=== PATIENT | male | born 1945 | race Caucasian/White ===

== ENCOUNTER 2016-09-18 18:39 | Emergency (ER) | payer MEDICARE, BC ==
[2016-09-18] MEDS ORDERED: Ondansetron 4 MG/2 ML SDV IVPUSH ONE (18:44)
[2016-09-18] MEDS ORDERED: Sodium Chloride 0.9% 1,000 ML IV SCH (18:45)
--- NOTE | 2016-09-18 18:46 | EDM.PDOC ---
ED HPI NEURO - General Chief Complaint: Neuro Symptoms/Deficits Stated Complaint: MEDICAL VIA [facility] Time Seen by Provider: 09/18/16 18:46 Source: Reports: Patient, Family History Limitations: Reports: No limitations - History of Present Illness INITIAL COMMENTS - FREE TEXT/NARRATIVE: pt arrived after a period of being quite confused. He has been ill for the past 2 days and has neen doing alot of vomiting. He does not have chest pain Timing/Duration: Reports: Day(s):, Getting worse, Other (pt has been vomiting for several days. He normally drinks etoh on a regular basis . He hs not drank for the past 2 days. He may be having some withdrawal at this point. ) Location (Neuro Complaint): Reports: generalized Quality (Neuro Complaint): Reports: other (Pt is has generalized weakness and confusion. ) Associated symptoms: Reports: confusion, weakness, nausea/vomiting - Related Data Allergies/ADRs: Allergies Allergy/AdvReac Type Severity Reaction Status Date / Time amlodipine Allergy Swelling Verified 09/18/16 19:00 nifedipine Allergy Rash Verified 09/18/16 19:00 Home Meds: Home Meds Losartan/Hydrochlorothiazide [Hyzaar 100-12.5 Tablet] 2 each PO DAILY 03/30/13 [ History] Metoprolol Tartrate [Lopressor] 100 mg PO BID 03/30/13 [History] PARoxetine HCl [Paxil] 40 mg PO DAILY 03/30/13 [History] Simvastatin [Zocor] 40 mg PO BEDTIME 03/30/13 [History] glyBURIDE [Diabeta] 2.5 mg PO DAILY 03/30/13 [History] hydrALAZINE HCl [Hydralazine HCl] 25 mg PO BID 03/30/13 [History] metFORMIN [Glucophage] 1,000 mg PO BIDM 03/30/13 [History] Aspirin [Halfprin] 81 mg PO DAILY 09/18/16 [History] Social & Family History - Tobacco Use Years of Tobacco use: 0 - Alcohol Use Days Per Week of Alcohol Use: 1 Number of Drinks Per Day: 5 Total Drinks Per Week: 5 - Recreational Drug Use Recreational Drug Use: No - Living Situation & Occupation Living situation: Reports: with spouse Occupation: retired (Substitute teaching) ED ROS GENERAL - Review of Systems Review Of Systems: See Below Constitutional: Reports: no symptoms HEENT: Reports: No symptoms Respiratory: Reports: No Symptoms Cardiovascular: Reports: Other (pt did have a low o2 sat when the first responders arrived. He has been maintaining at 92-93 %. He has not had any chest pain but he has had alot of vomiting and nausea. He has not been able to take his meds. ) Endocrine: Reports: high glucose GI/Abdominal: Reports: Nausea, Vomiting : Reports: no symptoms Musculoskeletal: Reports: no symptoms Skin: Reports: no symptoms ED EXAM, NEURO - Physical Exam Exam: See Below Text/Narrative:: pt is a pale appearing pt who became very confused this afternoon. He did not have chest pain. He has not drank for 2 days and does drink regularly. He denies abdomanal pain. Exam Limited By: Altered mental status General Appearance: alert, obtunded, other (pupils are equal and reactive. ) Ears: normal TMs Nose: normal inspection Throat/Mouth: Normal inspection Head Exam: atraumatic Neck: normal inspection Respiratory/Chest: no respiratory distress Cardiovascular: regular rate, rhythm GI/Abdominal: soft, non tender (Male) Exam: Deferred Rectal (Males) Exam: Deferred Neurological: alert, other (pt has generalized weakness. He is slow to answer. He is oriented to name and where he is. ) Back Exam: normal inspection Extremities: normal inspection Psychiatric: flat affect, other ( slow to respond. ) Course - Vital Signs Last Recorded V/S: Last Vital Signs Temp 37.8 C 09/18/16 20:20 Pulse 107 H 09/18/16 20:00 Resp 18 09/18/16 20:00 BP 167/90 H 09/18/16 20:00 Pulse Ox 94 L 09/18/16 20:00 - Orders/Labs/Meds Orders: Active Orders 24 hr Category Date Time Status EKG Documentation Completion [RC] ASDIRECTED Care 09/18/16 18:46 Active Chest 1V Frontal [CR] Stat Exams 09/18/16 19:41 Ordered Head wo Cont [CT] Stat Exams 09/18/16 18:45 Taken Potassium Chloride [KCL 20 MEQ in Water 100 ML] 20 meq Med 09/18/16 19:52 Ordered Premix Bag 1 bag IV ONETIME Sodium Chloride 0.9% [Normal Saline] 1,000 ml Med 09/18/16 18:45 Active IV ASDIRECTED EKG 12 Lead [EK] Routine Ther 09/18/16 18:46 Ordered Medication Orders Sodium Chloride (Normal Saline) 1,000 mls @ 200 mls/hr IV ASDIRECTED ANNA Last Admin: 09/18/16 18:50 Dose: 200 mls/hr Potassium Chloride 20 meq/ (Premix) 100 mls @ 50 mls/hr IV ONETIME ONE Stop: 09/18/16 21:51 Last Admin: 09/18/16 20:05 Dose: 50 mls/hr Labs: Laboratory Tests 09/18/16 09/18/16 09/18/16 Range/Units 18:55 18:55 18:55 WBC (4.5-11.0) K/uL RBC (4.30-5.90) M/uL Hgb (12.0-15.0) g/dL Hct (40.0-54.0) % MCV (80-98) fL MCH (27-31) pg MCHC (32-36) % Plt Count (150-400) K/uL Neut % (Auto) (36-66) % Lymph % (Auto) (24-44) % [place] % (Auto) (2-6) % Eos % (Auto) (2-4) % Baso % (Auto) (0-1) % Sodium (140-148) mmol/L Potassium (3.6-5.2) mmol/L Chloride (100-108) mmol/L Carbon Dioxide (21-32) mmol/L Anion Gap (5.0-14.0) mmol/L BUN (7-18) mg/dL Creatinine (0.8-1.3) mg/dL Est Cr Clr Drug Dosing mL/min Estimated GFR (MDRD) (>60) Glucose (74-106) mg/dL Calcium (8.5-10.1) mg/dL Total Bilirubin (0.2-1.0) mg/dL AST (15-37) U/L ALT (12-78) U/L Alkaline Phosphatase (46-116) U/L Ammonia 12 (11-32) mmol/L Creatine Kinase (39-308) U/L Troponin I 0.441 H* (0.000-0.056) ng/mL Zjk-[id number]-Hyhlddspwtq Pept (5-125) pg/mL Total Protein (6.4-8.2) g/dL Albumin (3.4-5.0) g/dL Globulin (2.3-3.5) g/dL Albumin/Globulin Ratio (1.2-2.2) Lipase 245 (73-393) U/L Urine Color Urine Appearance Urine pH (4.5-8.0) Ur Specific Evans (1.008-1.030) Urine Protein (NEGATIVE) mg/dL Urine Glucose (UA) (NEGATIVE) mg/dL Urine Ketones (NEGATIVE) mg/dL Urine Occult Blood (NEGATIVE) Urine Nitrite (NEGAITVE) Urine Bilirubin (NEGATIVE) Urine Urobilinogen (NORMAL) mg/dL Ur Leukocyte Esterase (NEGATIVE) Urine RBC (0-5) Urine WBC (0-5) Ur Epithelial Cells Amorphous Sediment Urine Bacteria Urine Mucus Ethyl Alcohol mg/dL 09/18/16 09/18/16 09/18/16 Range/Units 18:55 18:55 19:20 WBC 12.4 H (4.5-11.0) K/uL RBC 4.04 L (4.30-5.90) M/uL Hgb 13.8 (12.0-15.0) g/dL Hct 39.5 L (40.0-54.0) % MCV 98 (80-98) fL MCH 34 H (27-31) pg MCHC 35 (32-36) % Plt Count 155 (150-400) K/uL Neut % (Auto) 89 H (36-66) % Lymph % (Auto) 4 L (24-44) % [place] % (Auto) 7 H (2-6) % Eos % (Auto) 0 L (2-4) % Baso % (Auto) 0 (0-1) % Sodium 137 L (140-148) mmol/L Potassium 3.1 L (3.6-5.2) mmol/L Chloride 94 L (100-108) mmol/L Carbon Dioxide 26 (21-32) mmol/L Anion Gap 20.1 H (5.0-14.0) mmol/L BUN 12 (7-18) mg/dL Creatinine 1.2 (0.8-1.3) mg/dL Est Cr Clr Drug Dosing 62.75 mL/min Estimated GFR (MDRD) > 60 (>60) Glucose 322 H (74-106) mg/dL Calcium 9.1 (8.5-10.1) mg/dL Total Bilirubin 0.9 (0.2-1.0) mg/dL AST 52 H (15-37) U/L ALT 39 (12-78) U/L Alkaline Phosphatase 59 (46-116) U/L Ammonia (11-32) mmol/L Creatine Kinase 426 H (39-308) U/L Troponin I (0.000-0.056) ng/mL Qae-A-Xcihqlmqzim Pept (5-125) pg/mL Total Protein 7.8 (6.4-8.2) g/dL Albumin 4.2 (3.4-5.0) g/dL Globulin 3.6 H (2.3-3.5) g/dL Albumin/Globulin Ratio 1.2 (1.2-2.2) Lipase (73-393) U/L Urine Color Yellow Urine Appearance Slightly cloudy Urine pH 7.0 (4.5-8.0) Ur Specific Evans 1.015 (1.008-1.030) Urine Protein Negative (NEGATIVE) mg/dL Urine Glucose (UA) 1000 H (NEGATIVE) mg/dL Urine Ketones 50 H (NEGATIVE) mg/dL Urine Occult Blood Large (NEGATIVE) Urine Nitrite Negative (NEGAITVE) Urine Bilirubin Negative (NEGATIVE) Urine Urobilinogen Normal (NORMAL) mg/dL Ur Leukocyte Esterase Negative (NEGATIVE) Urine RBC 5-10 H (0-5) Urine WBC 0-5 (0-5) Ur Epithelial Cells Few Amorphous Sediment Not seen Urine Bacteria Many Urine Mucus Rare Ethyl Alcohol mg/dL 09/18/16 09/18/16 Range/Units 19:45 19:45 WBC (4.5-11.0) K/uL RBC (4.30-5.90) M/uL Hgb (12.0-15.0) g/dL Hct (40.0-54.0) % MCV (80-98) fL MCH (27-31) pg MCHC (32-36) % Plt Count (150-400) K/uL Neut % (Auto) (36-66) % Lymph % (Auto) (24-44) % [place] % (Auto) (2-6) % Eos % (Auto) (2-4) % Baso % (Auto) (0-1) % Sodium (140-148) mmol/L Potassium (3.6-5.2) mmol/L Chloride (100-108) mmol/L Carbon Dioxide (21-32) mmol/L Anion Gap (5.0-14.0) mmol/L BUN (7-18) mg/dL Creatinine (0.8-1.3) mg/dL Est Cr Clr Drug Dosing mL/min Estimated GFR (MDRD) (>60) Glucose (74-106) mg/dL Calcium (8.5-10.1) mg/dL Total Bilirubin (0.2-1.0) mg/dL AST (15-37) U/L ALT (12-78) U/L Alkaline Phosphatase (46-116) U/L Ammonia (11-32) mmol/L Creatine Kinase (39-308) U/L Troponin I (0.000-0.056) ng/mL Bhu-I-Dlwihlsmver Pept 2580 H (5-125) pg/mL Total Protein (6.4-8.2) g/dL Albumin (3.4-5.0) g/dL Globulin (2.3-3.5) g/dL Albumin/Globulin Ratio (1.2-2.2) Lipase (73-393) U/L Urine Color Urine Appearance Urine pH (4.5-8.0) Ur Specific Evans (1.008-1.030) Urine Protein (NEGATIVE) mg/dL Urine Glucose (UA) (NEGATIVE) mg/dL Urine Ketones (NEGATIVE) mg/dL Urine Occult Blood (NEGATIVE) Urine Nitrite (NEGAITVE) Urine Bilirubin (NEGATIVE) Urine Urobilinogen (NORMAL) mg/dL Ur Leukocyte Esterase (NEGATIVE) Urine RBC (0-5) Urine WBC (0-5) Ur Epithelial Cells Amorphous Sediment Urine Bacteria Urine Mucus Ethyl Alcohol < 3 mg/dL Meds: Medications Generic Name Dose Route Start Last Admin Trade Name Freq PRN Reason Stop Dose Admin Sodium Chloride 1,000 mls @ 200 mls/hr 09/18/16 18:45 09/18/16 18:50 Normal Saline IV 200 mls/hr ASDIRECTED ANNA Administration Potassium Chloride 20 meq/ 100 mls @ 50 mls/hr 09/18/16 19:52 09/18/16 20:05 Premix IV 09/18/16 21:51 50 mls/hr ONETIME ONE Administration Discontinued Medications Generic Name Dose Route Start Last Admin Trade Name Yamilka PRN Reason Stop Dose Admin Insulin Aspart 7 unit 09/18/16 19:54 09/18/16 20:15 Novolog SUBCUT 09/18/16 19:55 7 units ASDIRECTED ONE Administration Labetalol HCl 20 mg 09/18/16 19:53 09/18/16 19:59 Normodyne IVPUSH 09/18/16 19:54 20 mg NOW ONE Administration Lidocaine HCl Confirm 09/18/16 19:58 09/18/16 20:15 Xylocaine-Mpf 1% Administered 09/18/16 19:59 Not Given Dose 5 ml .ROUTE .STK-MED ONE Lidocaine HCl 2 ml 09/18/16 20:08 09/18/16 20:10 Xylocaine-Mpf 1% INJECT 09/18/16 20:09 2 ml ONETIME ONE Administration Ondansetron HCl 4 mg 09/18/16 18:44 09/18/16 18:51 Zofran IVPUSH 09/18/16 18:45 4 mg ONETIME ONE Administration - Re-Assessments/Exams Free Text/Narrative Re-Assessment/Exam: 09/18/16 20:19 pt had a elevated trop at .44. He has a bs of 344. He has a k of 3.1. He has an elevated bp and was given labatiol 20mg iv. He ws given kcl. He was given7 units of humolog . He was given kcl. He had asa in the ambulance. 09/18/16 20:23 cat scan of the head was normal. Departure - Departure Time of Disposition: 20:21 Disposition: DC/Tfer to Acute Hospital 02 Condition: fair Clinical Impression: Elevated troponin, Confusion, ETOH abuse, Hypokalemia, Hypertension, Hyperglycemia Referrals: PCP,None [Primary Care Provider] - Forms: ED Department Discharge Care Plan Goals: transfer [facility] by ambulance. - My Orders Last 24 Hours: My Active Orders 09/18/16 18:45 Head wo Cont [CT] Stat Sodium Chloride 0.9% [Normal Saline] 1,000 ml IV ASDIRECTED 09/18/16 18:46 EKG Documentation Completion [RC] ASDIRECTED EKG 12 Lead [EK] Routine 09/18/16 19:41 Chest 1V Frontal [CR] Stat 09/18/16 19:52 Potassium Chloride [KCL 20 MEQ in Water 100 ML] 20 meq Premix Bag 1 bag IV ONETIME - Assessment/Plan Last 24 Hours: My Active Orders 09/18/16 18:45 Head wo Cont [CT] Stat Sodium Chloride 0.9% [Normal Saline] 1,000 ml IV ASDIRECTED 09/18/16 18:46 EKG Documentation Completion [RC] ASDIRECTED EKG 12 Lead [EK] Routine 09/18/16 19:41 Chest 1V Frontal [CR] Stat 09/18/16 19:52 Potassium Chloride [KCL 20 MEQ in Water 100 ML] 20 meq Premix Bag 1 bag IV ONETIME
[2016-09-18] MEDS ORDERED: Potassium Chloride 20 MEQ in Premix Bag 1 BAG IV ONE (19:52)
[2016-09-18] MEDS ORDERED: Labetalol 20 MG/4 ML Syringe IVPUSH ONE (19:53)
[2016-09-18] MEDS ORDERED: Insulin Aspart 100 Units/ML 3 ML Pen SUBCUT ONE (19:54)
[2016-09-18 20:14] VITALS: BP 167/90
--- NOTE | 2016-09-20 10:17 | CR ---
Chest 1V Frontal HISTORY: Shortness of breath. Comparison: 04/20/2015. FINDINGS: Cardiac size and pulmonary vessels are normal. The lungs are clear. IMPRESSION: Negative AP chest.
== END 2016-09-18 20:46 ==
LOC: JP.ED 18:39
DX: R41.0 Disorientation, unspecified (principal); E87.6 Hypokalemia; R73.9 Hyperglycemia, unspecified; I10 Essential (primary) hypertension; F10.10 Alcohol abuse, uncomplicated; R74.8 Abnormal levels of other serum enzymes; Z79.82 Long term (current) use of aspirin; Z79.899 Other long term (current) drug therapy; Z88.8 Allergy status to other drugs, medicaments and biological substances; R06.02 Shortness of breath
CPT/HCPCS: 36415; 70450; 71010; 80053; 81001; 82140; 82550; 83690; 83880; 84484; 85025; 93005; 93010; 96361; 96372; 96374; 96375; 99285; A9270; G0480; J2405; J3480; J7040

== ENCOUNTER 2017-07-04 17:42 | Emergency (ER) | payer MEDICARE, BC ==
[2017-07-04] MEDS ORDERED: MVI, Adult with Vitamin K 10 ML, Thiamine 200 MG, Folic Acid 1 MG, Magnesium Sulfate 2 ... IV ONE ×5 (18:22)
--- NOTE | 2017-07-04 18:26 | EDM.PDOC ---
ED HPI GENERAL MEDICAL PROBLEM - General Chief Complaint: Neuro Symptoms/Deficits Stated Complaint: SEIZURE Time Seen by Provider: 07/04/17 18:07 Source of Information: Reports: Patient, Family, RN Notes Reviewed History Limitations: Reports: No Limitations - History of Present Illness INITIAL COMMENTS - FREE TEXT/NARRATIVE: 71-year-old gentleman presents to the emergency department today with the complaint of seizure-like activity, he has a known history of alcohol abuse and dependence has had one seizure episode prior which included workup of CT scan. For this particular event he does admit to consuming vodka and wine last drink was on Tuesday or approximately 72 hours prior he did have tremors yesterday has had difficulty with vomiting throughout the weekend had an episode today described by his where he was stiff did bite his tongue eyes were closed and was having difficulty maintaining his secretions. At this time he denies any symptomology other than a sore tongue and is in denial about his alcohol use. - Related Data Allergies Allergy/AdvReac Type Severity Reaction Status Date / Time amlodipine Allergy Swelling Verified 07/04/17 17:56 nifedipine Allergy Rash Verified 07/04/17 17:56 Home Meds: Home Meds Losartan/Hydrochlorothiazide [Hyzaar 100-12.5 Tablet] 2 each PO DAILY 03/30/13 [ History] Metoprolol Tartrate [Lopressor] 100 mg PO BID 03/30/13 [History] PARoxetine HCl [Paxil] 40 mg PO DAILY 03/30/13 [History] glyBURIDE [Diabeta] 2.5 mg PO DAILY 03/30/13 [History] hydrALAZINE HCl [Hydralazine HCl] 25 mg PO BID 03/30/13 [History] metFORMIN [Glucophage] 1,000 mg PO BID 03/30/13 [History] Past Medical History HEENT History: Reports: Impaired Vision Cardiovascular History: Reports: High Cholesterol, Hypertension Genitourinary History: Reports: Prostate Disorder Musculoskeletal History: Reports: Back Pain, Chronic Psychiatric History: Reports: Addiction (Alcohol), Anxiety, Depression Endocrine/Metabolic History: Reports: Diabetes, Type II - Infectious Disease History Infectious Disease History: Reports: Chicken Pox - Past Surgical History Neurological Surgical History: Reports: Other (See Below) Social & Family History - Tobacco Use Smoking Status *Q: Unknown Ever Smoked Years of Tobacco use: 0 Used Tobacco, but Quit: Yes Month Tobacco Last Used: december 2015 - Caffeine Use Caffeine Use: Reports: None - Alcohol Use Days Per Week of Alcohol Use: 7 Number of Drinks Per Day: 5 Total Drinks Per Week: 35 - Recreational Drug Use Recreational Drug Use: No - Living Situation & Occupation Living situation: Reports: with Spouse Occupation: Retired ED ROS GENERAL - Review of Systems Review Of Systems: See Below Constitutional: Reports: No Symptoms HEENT: Reports: Other (Sore tongue) Respiratory: Reports: No Symptoms Cardiovascular: Reports: No Symptoms Endocrine: Reports: No Symptoms GI/Abdominal: Reports: No Symptoms : Reports: No Symptoms Musculoskeletal: Reports: No Symptoms Skin: Reports: No Symptoms Neurological: Reports: No Symptoms ED EXAM, NEURO - Physical Exam Exam: See Below Text/Narrative:: General: Male, not in any distress, alert and oriented x2 confused on year 1966 HEENT: head is atraumatic normocephalic, eyes pupils equal round reactive to light, sclera clear no conjunctivitis appreciated. Ears tympanic membranes clear and polo landmarks and light reflex are present bilaterally canals are clear. Nose no septal deviation, nares are clear, no blood present. Mouth mucosa is dry and pink no erythema or exudate noted in soft palate, tongue is midline uvula is midline, tongue does have a superficial lacerations consistent with a bite on the right lateral aspect, dentition is intact. Neck: Supple no thyromegaly no tracheal deviation. Nodes: Cervical nodes subclavicular nodes nontender no palpable lymphadenopathy noted. Lungs: breath sounds are distant , no adventitious noise appreciated. CV: Regular rate and rhythm S1 and S2 appreciated no murmurs rubs or gallops noted. Abdomen: Soft, nontender, no palpable masses or organomegaly appreciated, no distention no guarding bowel sounds are present, . Neuro: Cranial nerves II through XII grossly intact Skin: Warm and dry, intact Extremities: No lower extremity edema appreciated, pedal pulse is +2. Course - Vital Signs Last Recorded V/S: Last Vital Signs Temp 99.7 F 07/04/17 21:17 Pulse 88 07/04/17 23:40 Resp 16 07/04/17 23:40 BP 164/92 H 07/04/17 23:40 Pulse Ox 92 L 07/04/17 23:40 - Orders/Labs/Meds Orders: Active Orders 24 hr Category Date Time Status Head wo Cont [CT] Stat Exams 07/04/17 22:27 Taken DRUG SCREEN, URINE [URCHEM] Stat Lab 07/04/17 22:27 Uncollected UA W/MICROSCOPIC [URIN] Urgent Lab 07/04/17 22:27 Uncollected LORazepam [Ativan] Med 07/05/17 00:03 Once 2 mg IVPUSH ONETIME ONE Labs: Laboratory Tests 07/04/17 07/04/17 07/04/17 Range/Units 18:32 18:32 18:32 WBC 8.5 (4.5-11.0) K/uL RBC 4.33 (4.30-5.90) M/uL Hgb 14.8 (12.0-15.0) g/dL Hct 41.4 (40.0-54.0) % MCV 96 (80-98) fL MCH 34 H (27-31) pg MCHC 36 (32-36) % Plt Count 127 L (150-400) K/uL Neut % (Auto) 84 H (36-66) % Lymph % (Auto) 6 L (24-44) % [place] % (Auto) 11 H (2-6) % Eos % (Auto) 0 L (2-4) % Baso % (Auto) 0 (0-1) % PT (9.5-12.0) sec INR (0.80-1.20) Sodium 134 L (140-148) mmol/L Potassium 3.0 L (3.6-5.2) mmol/L Chloride 90 L (100-108) mmol/L Carbon Dioxide 30 (21-32) mmol/L Anion Gap 17.0 H (5.0-14.0) mmol/L BUN 23 H D (7-18) mg/dL Creatinine 1.2 (0.8-1.3) mg/dL Est Cr Clr Drug Dosing 61.88 mL/min Estimated GFR (MDRD) > 60 (>60) Glucose 221 H (74-106) mg/dL Calcium 9.2 (8.5-10.1) mg/dL Total Bilirubin 1.4 H D (0.2-1.0) mg/dL AST 72 H (15-37) U/L ALT 72 D (12-78) U/L Alkaline Phosphatase 62 (46-116) U/L Total Protein 7.3 (6.4-8.2) g/dL Albumin 4.2 (3.4-5.0) g/dL Globulin 3.1 (2.3-3.5) g/dL Albumin/Globulin Ratio 1.4 (1.2-2.2) Ethyl Alcohol < 3 mg/dL 07/04/17 Range/Units 22:27 WBC (4.5-11.0) K/uL RBC (4.30-5.90) M/uL Hgb (12.0-15.0) g/dL Hct (40.0-54.0) % MCV (80-98) fL MCH (27-31) pg MCHC (32-36) % Plt Count (150-400) K/uL Neut % (Auto) (36-66) % Lymph % (Auto) (24-44) % [place] % (Auto) (2-6) % Eos % (Auto) (2-4) % Baso % (Auto) (0-1) % PT 13.3 H (9.5-12.0) sec INR 1.23 H (0.80-1.20) Sodium (140-148) mmol/L Potassium (3.6-5.2) mmol/L Chloride (100-108) mmol/L Carbon Dioxide (21-32) mmol/L Anion Gap (5.0-14.0) mmol/L BUN (7-18) mg/dL Creatinine (0.8-1.3) mg/dL Est Cr Clr Drug Dosing mL/min Estimated GFR (MDRD) (>60) Glucose (74-106) mg/dL Calcium (8.5-10.1) mg/dL Total Bilirubin (0.2-1.0) mg/dL AST (15-37) U/L ALT (12-78) U/L Alkaline Phosphatase (46-116) U/L Total Protein (6.4-8.2) g/dL Albumin (3.4-5.0) g/dL Globulin (2.3-3.5) g/dL Albumin/Globulin Ratio (1.2-2.2) Ethyl Alcohol mg/dL Meds: Medications Discontinued Medications Generic Name Dose Route Start Last Admin Trade Name Freq PRN Reason Stop Dose Admin Multivitamins/Minerals 10 ml/ 1,016.2 mls @ 500 mls/hr 07/04/17 18:22 18:51 Thiamine HCl 200 mg/ Folic IV 07/04/17 20:23 500 mls/hr Acid 1 mg/ Magnesium Sulfate 2 ONETIME ONE Administration gm/ Dextrose/Lactated Ringer' s Potassium Chloride 20 meq/ 100 mls @ 50 mls/hr 07/04/17 19:03 07/04/17 19:13 Premix IV 07/04/17 21:02 50 mls/hr ONETIME ONE Administration Lidocaine HCl 2 ml 07/04/17 19:07 07/04/17 19:14 Xylocaine-Mpf 1% INJECT 07/04/17 19:08 2 ml ONETIME ONE Administration Lorazepam 1 mg 07/04/17 21:23 07/04/17 21:32 Ativan IVPUSH 07/04/17 21:24 1 mg ONETIME ONE Administration Lorazepam 1 mg 07/04/17 23:14 07/04/17 23:21 Ativan IVPUSH 07/04/17 23:15 1 mg ONETIME ONE Administration Potassium Chloride 40 meq 07/04/17 19:03 07/04/17 19:14 Klor-Con M20 PO 07/04/17 19:04 40 meq ONETIME ONE Administration - Re-Assessments/Exams Free Text/Narrative Re-Assessment/Exam: Had a discussion with the family they elected to try [facility] detoxification facility unfortunately when we tried to ambulate this gentleman he had difficulty ambulating became more confused during his time in the emergency department., 07/04/17 22:28 Departure - Departure Time of Disposition: 00:06 Disposition: DC/Tfer to Acute Hospital 02 Condition: Fair Clinical Impression: Delirium tremens, ETOH abuse Alcohol withdrawal seizure Qualifiers: Complication of substance-induced condition: with delirium Qualified Code(s): F10.231 - Alcohol dependence with withdrawal delirium - Discharge Information Referrals: Cy Barragan MD [Primary Care Provider] - Forms: ED Department Discharge - My Orders Last 24 Hours: My Active Orders 07/04/17 22:27 Head wo Cont [CT] Stat DRUG SCREEN, URINE [URCHEM] Stat UA W/MICROSCOPIC [URIN] Urgent 07/05/17 00:03 LORazepam [Ativan] 2 mg IVPUSH ONETIME ONE - Assessment/Plan Last 24 Hours: My Active Orders 07/04/17 22:27 Head wo Cont [CT] Stat DRUG SCREEN, URINE [URCHEM] Stat UA W/MICROSCOPIC [URIN] Urgent 07/05/17 00:03 LORazepam [Ativan] 2 mg IVPUSH ONETIME ONE Plan: Assessment Acuity = acute Site and laterality = alcohol withdrawal with seizure like activity and concern for development of delirium tremors Etiology = alcohol abuse and dependence Manifestations = none Location of injury = Home Lab values = platelets low at 127 consistent with thrombocytopenia sodium low at 134 consistent with hyponatremia potassium low at 3.0 consistent with hypokalemia glucose elevated at 221 consistent with hyperglycemia bilirubin high at 1.4 consistent with hyperbilirubinemia AST elevated at 72 consistent elevated liver enzymes alcohol is not measurable, INR is 1.23 urine never collected Plan Potassium was replaced with IV and oral medications he was given 1 banana bag while in the ED observed for several hours no seizure-like activity , has been provided total of 4 mg Ativan while in the emergency department, called and discussed the case with hospitalist at [facility] Dr. Gomez he kindly accepted the patient in transport he will be transported via EMS ground. This note was dictated using [employer] voice recognition software please call with any questions on syntax or lizet.
[2017-07-04] MEDS ORDERED: Potassium Chloride 20 MEQ Tab.ER PO ONE (19:03)
[2017-07-04] MEDS ORDERED: Potassium Chloride 20 MEQ in Premix Bag 1 BAG IV ONE (19:03)
[2017-07-04] MEDS ORDERED: LORazepam 2 MG/ML MDV IVPUSH ONE ×2 (21:23→23:14)
[2017-07-04 23:41] VITALS: BP 164/92
[2017-07-05] MEDS ORDERED: LORazepam 2 MG/ML MDV IVPUSH ONE ×2 (00:03→00:35)
== END 2017-07-05 00:41 ==
LOC: JP.ED 17:42
DX: F10.231 Alcohol dependence with withdrawal delirium (principal); S01.512A Laceration without foreign body of oral cavity, initial encounter; Y90.0 Blood alcohol level of less than 20 mg/100 ml; I10 Essential (primary) hypertension; E78.00 Pure hypercholesterolemia, unspecified; F32.9 Major depressive disorder, single episode, unspecified; E11.9 Type 2 diabetes mellitus without complications; Z87.891 Personal history of nicotine dependence; Z79.84 Long term (current) use of oral hypoglycemic drugs; Z79.899 Other long term (current) drug therapy; Z88.8 Allergy status to other drugs, medicaments and biological substances; X58.XXXA Exposure to other specified factors, initial encounter
CPT/HCPCS: 36415; 70450; 80053; 80305; 81001; 85025; 85610; 96365; 96366; 96375; 96376; 99285; A9270; G0480; J2060; J3411; J3475; J3480; J7042; 99284; J3490

== ENCOUNTER 2020-06-13 08:44 | Day surgery (SDC) | payer MEDICARE, BC ==
[~2020-06-13 08:44] MED LIST: Bupivacaine 0.5% 50 ML MDV ONE; Lidocaine 1% with EPINEPHrine 1:100,000 50 ML MDV ONE; Midazolam 1 MG/ML 2 ML SDV ONE; Propofol 200 MG/20 ML SDV ONE; fentaNYL 100 MCG/2 ML SDV ONE
[2020-06-13] MEDS ORDERED: Acetaminophen 500 MG Tab PO ONE (08:45)
[2020-06-13] MEDS ORDERED: Dextrose 5%-Lactated Ringers 1,000 ML IV SCH (09:15)
[2020-06-13] MEDS ORDERED: Metoprolol Tartrate 50 MG Tab PO ONE (09:15)
[2020-06-13] MEDS ORDERED: Propofol 200 MG/20 ML SDV ONE ×4 (10:12→11:02)
[2020-06-13] MEDS ORDERED: ceFAZolin 1 GM Vial ONE (10:14)
[2020-06-13] MEDS ORDERED: Ketorolac 60 MG/2 ML SDV ONE (10:54)
[2020-06-13] MEDS ORDERED: Lactated Ringers 1,000 ML ONE (10:57)
[2020-06-13] MEDS ORDERED: Acetaminophen/oxyCODONE 325-5 MG Tab PO ONE (12:00)
[2020-06-13 12:49] VITALS: BP 143/69; PULSE 72
--- NOTE | 2020-06-22 12:33 | OR ---
DATE OF PROCEDURE: 06/13/2020 SURGEON: Varun Vital MD PREOPERATIVE DIAGNOSIS: Large painful right inguinal lymph nodes. POSTOPERATIVE DIAGNOSIS: Large painful right inguinal lymph nodes. OPERATIVE PROCEDURE: Superficial inguinal femoral lymphadenectomy (15316). ANESTHESIA: Local plus IV sedation. INDICATION FOR PROCEDURE: A 74-year-old presenting with rapidly enlarging, quite painful nodes located in the inguinal and femoral area on the right side. Plan is to proceed with excision of these for both symptom control as well as diagnostic purposes. Potential risks of the procedure including bleeding, infection, injury to the nerves and/or vasculature in that area were discussed. Possible problems with ongoing lymphatic drainage postoperatively from the incision were all gone over and the patient wishes to proceed. DETAILS OF PROCEDURE: The patient was taken to the operating room and placed in a supine position. IV sedation was administered after which the abdomen and groin areas were prepped and draped. The skin overlying the inguinal crease was then anesthetized with 1% lidocaine mixed with Marcaine. An incision was made and carried down through the skin and subcutaneous tissue. Several large nodes up to the size of ping-pong balls in dimension were then excised essentially moving all of the inguinal and femoral lymph nodes in that area. The lymph nodes grossly were fish flesh in color quite suggestive of this being a lymphoma. During the course of the dissection, the vascular and lymphatic attachments were divided and suture ligated with 3-0 and 4-0 Vicryl stitch, and at that point, the area was inspected. It was notable that there was some palpable lymphadenopathy continuing into the iliac chain extending toward the retroperitoneum. A 7-Vietnamese Nikhil-Miner drain was placed through a stab wound lateral to the main incision and the incision then closed with 3 layers of 3-0 and 4-0 Vicryl stitch deep and then néstor for the skin. The drain was affixed with 4-0 Vicryl stitch as well and the patient was taken to the recovery room in satisfactory condition. There were no evident complications. Plan at this point will be to set up the patient for a CT scan of the chest, abdomen, and pelvis for initial staging of the process and we will see him back next Tuesday to check the wound and hopefully we will get a pathology report in the near future with a Medical Oncology appointment to be set up at that point. Varun Vital MD /[id number]
== END 2020-06-13 13:00 | disposition home or self-care (01) ==
LOC: JP.SDS 08:44
PROVIDERS: ATTEND Surgery
DX: C96.9 Malignant neoplasm of lymphoid, hematopoietic and related tissue, unspecified (principal); I10 Essential (primary) hypertension; E11.9 Type 2 diabetes mellitus without complications; C79.9 Secondary malignant neoplasm of unspecified site
CPT/HCPCS: 38760; 88307; 88341; 88342; A9270; J0690; J1885; J2020; J2250; J2704; J3010; J3490; J7120; J7121

== ENCOUNTER 2020-09-03 10:34 | Inpatient (IN) | payer MEDICARE, BC ==
[2020-09-03] MEDS ORDERED: Potassium Chloride 20 MEQ in Premix Bag 1 BAG IV ONE ×3 (11:13→21:30)
[2020-09-03] MEDS ORDERED: Sodium Chloride 0.9% 1,000 ML IV SCH (11:15)
--- NOTE | 2020-09-03 11:17 | EDM.PDOC ---
ED HPI GENERAL MEDICAL PROBLEM - General Chief Complaint: General Stated Complaint: WEAK, LOW POTASSIUM Time Seen by Provider: 09/03/20 11:16 Source of Information: Reports: Patient, Police History Limitations: Reports: No Limitations - History of Present Illness INITIAL COMMENTS - FREE TEXT/NARRATIVE: pt was seen at the clinic ansd was found to have k of 2.2. He did have a temp of 101. He is on oral chemo for his prostate Ca. His urine was infected. Onset: Gradual Duration: Day(s):, Other (pt has been much weaker. ) Location: Reports: Generalized Associated Symptoms: Reports: Fever/Chills, Loss of Appetite, Weakness Generalized Pain Score (Numeric/FACES): 6 - Related Data Allergies Allergy/AdvReac Type Severity Reaction Status Date / Time amlodipine Allergy Swelling Verified 09/03/20 10:56 nifedipine Allergy Rash Verified 09/03/20 10:56 Home Meds: Home Meds Losartan/Hydrochlorothiazide [Hyzaar 100-12.5 Tablet] 2 each PO DAILY 03/30/13 [History] Metoprolol Tartrate [Lopressor] 100 mg PO BID 03/30/13 [History] PARoxetine HCl [Paxil] 40 mg PO DAILY 03/30/13 [History] glyBURIDE [Diabeta] 2.5 mg PO DAILY 03/30/13 [History] hydrALAZINE HCl [Hydralazine HCl] 25 mg PO BID 03/30/13 [History] metFORMIN [Glucophage] 1,000 mg PO BID 03/30/13 [History] Chlorpheniramine Maleate 12 mg PO DAILY 06/12/20 [History] Cholecalciferol (Vitamin D3) [Vitamin D] 1,000 unit PO DAILY 06/12/20 [History] Copper/Ginseng/Saw Palm/Zinc [Prostate Health Formula] 1 each PO DAILY 06/12/20 [History] Cyanocobalamin (Vitamin B-12) [B-12] 2,500 mcg SL DAILY 06/12/20 [History] Folic Acid 0.4 mg PO DAILY 06/12/20 [History] Furosemide [Lasix] 20 mg PO DAILY 06/12/20 [History] Multivitamin [Multi-Vitamin Daily] 1 each PO DAILY 06/12/20 [History] Ondansetron [Ondansetron Odt] 4 mg PO Q8HR PRN 06/12/20 [History] Abiraterone Acetate 1,000 mg PO DAILY 09/03/20 [History] Finasteride 5 mg PO DAILY 09/03/20 [History] Tamsulosin [Tamsulosin 24 Hr] 0.4 mg PO DAILY 09/03/20 [History] Past Medical History HEENT History: Reports: Impaired Vision Cardiovascular History: Reports: High Cholesterol, Hypertension Respiratory History: Reports: None Gastrointestinal History: Reports: None Genitourinary History: Reports: BPH, Prostate Disorder Musculoskeletal History: Reports: Back Pain, Chronic Psychiatric History: Reports: Addiction, Anxiety, Depression Endocrine/Metabolic History: Reports: Diabetes, Type II Oncologic (Cancer) History: Reports: Prostate - Infectious Disease History Infectious Disease History: Reports: Chicken Pox, Novel Coronavirus - Past Surgical History HEENT Surgical History: Reports: Tonsillectomy GI Surgical History: Reports: None Male Surgical History: Reports: Prostate Biopsy Neurological Surgical History: Reports: Other (See Below) Other Neurological Surgeries/Procedures: Back surgery Social & Family History - Tobacco Use Tobacco Use Status *Q: Former Tobacco User Used Tobacco, but Quit: Yes Month/Year Tobacco Last Used: 20 years - Caffeine Use Caffeine Use: Reports: None - Recreational Drug Use Recreational Drug Use: No - Living Situation & Occupation Living situation: Reports: with Spouse Occupation: Retired ED ROS GENERAL - Review of Systems Review Of Systems: See Below Constitutional: Reports: Fever, Chills, Malaise HEENT: Reports: No Symptoms Respiratory: Reports: No Symptoms Cardiovascular: Reports: Palpitations Endocrine: Reports: No Symptoms GI/Abdominal: Reports: No Symptoms : Reports: No Symptoms Musculoskeletal: Reports: No Symptoms Skin: Reports: No Symptoms ED EXAM, GENERAL - Physical Exam Exam: See Below Free Text/Narrative:: pt had labs at the clinic. He had a k of 2.2. He has a normal wbc. He has a uti and a fever. He is on oral chemo. Exam Limited By: No Limitations General Appearance: Alert, Anxious, Mild Distress Ears: Normal TMs Nose: Normal Inspection Throat/Mouth: Normal Inspection Head: Atraumatic Neck: Normal Inspection Respiratory/Chest: No Respiratory Distress Cardiovascular: Regular Rate, Rhythm, Tachycardia GI/Abdominal: Soft, Non-Tender (Male) Exam: Deferred Rectal (Males) Exam: Deferred Back Exam: Normal Inspection Extremities: Normal Inspection Neurological: Alert, Oriented, Normal Cognition, Other (pt is lethargic) Psychiatric: Normal Affect Course - Vital Signs Last Recorded V/S: Last Vital Signs Temp 36.8 C 09/03/20 10:53 Pulse 88 09/03/20 10:53 Resp 15 09/03/20 10:53 BP 132/70 09/03/20 10:53 Pulse Ox 95 09/03/20 10:53 - Orders/Labs/Meds Orders: Active Orders 24 hr Category Date Time Status CULTURE BLOOD [BC] Urgent Lab 09/03/20 11:22 Received CULTURE BLOOD [BC] Urgent Lab 09/03/20 11:32 Received Sodium Chloride 0.9% [Normal Saline] 1,000 ml Med 09/03/20 11:15 Active IV ASDIRECTED Sodium Chloride 0.9% [Normal Saline] 1,000 ml Med 09/03/20 11:15 Active IV ASDIRECTED Blood Culture x2 Reflex Set [OM.PC] Urgent Oth 09/03/20 11:15 Ordered EKG 12 Lead [EK] Routine Ther 09/03/20 11:13 Ordered Medication Orders Sodium Chloride (Normal Saline) 1,000 mls @ 999 mls/hr IV ASDIRECTED ANNA Last Admin: 09/03/20 11:55 Dose: 999 mls/hr Documented by: Infusion: 09/03/20 11:55 Dose: 999 mls/hr Documented by: Admin: 09/03/20 11:54 Dose: 999 mls/hr Documented by: PREILOR Sodium Chloride (Normal Saline) 1,000 mls @ 999 mls/hr IV ASDIRECTED ANNA Last Admin: 09/03/20 12:00 Dose: 999 mls/hr Documented by: PREILOR Labs: Laboratory Tests 09/03/20 09/03/20 Range/Units 11:32 11:32 POC Glucose 229 H (74-106) MG/DL Lactic Acid 1.6 (0.4-2.0) mmol/L Meds: Medications Generic Name Dose Route Start Last Admin Trade Name Freq PRN Reason Stop Dose Admin Sodium Chloride 1,000 mls @ 999 mls/hr 09/03/20 11:15 09/03/20 11:55 Normal Saline IV 999 mls/hr ASDIRECTED ANNA Administration Sodium Chloride 1,000 mls @ 999 mls/hr 09/03/20 11:15 09/03/20 12:00 Normal Saline IV 999 mls/hr ASDIRECTED ANNA Administration Discontinued Medications Generic Name Dose Route Start Last Admin Trade Name Yamilka PRN Reason Stop Dose Admin Potassium Chloride 20 meq/ 100 mls @ 50 mls/hr 09/03/20 11:13 09/03/20 11:56 Premix IV 09/03/20 13:12 50 mls/hr ONETIME ONE Administration Ceftriaxone Sodium 1 gm/ 50 mls @ 100 mls/hr 09/03/20 11:22 09/03/20 11:58 Sodium Chloride IV 09/03/20 11:51 100 mls/hr ONETIME ONE Administration - Re-Assessments/Exams Free Text/Narrative Re-Assessment/Exam: 09/03/20 13:23 pt had a normal lactic acid. he does have a elevated bs. Departure - Departure Time of Disposition: 13:07 Disposition: Admitted As Inpatient 68 Condition: Fair Clinical Impression: Hypokalemia, Dehydration, UTI (urinary tract infection), CA of prostate - Discharge Information Referrals: Cy Barragan MD [Primary Care Provider] - Forms: ED Department Discharge Care Plan Goals: admit to Dr Miller Sepsis Event Note (ED) - Evaluation Sepsis Screening Result: No Definite Risk - Focused Exam Vital Signs: Vital Signs Temp Pulse Resp BP Pulse Ox 09/03/20 10:53 36.8 C 88 15 132/70 95 09/03/20 10:50 36.8 C 88 15 132/70 95 - My Orders Last 24 Hours: My Active Orders 09/03/20 11:13 EKG 12 Lead [EK] Routine 09/03/20 11:15 Sodium Chloride 0.9% [Normal Saline] 1,000 ml IV ASDIRECTED Sodium Chloride 0.9% [Normal Saline] 1,000 ml IV ASDIRECTED Blood Culture x2 Reflex Set [OM.PC] Urgent 09/03/20 11:22 CULTURE BLOOD [BC] Urgent 09/03/20 11:32 CULTURE BLOOD [BC] Urgent - Assessment/Plan Last 24 Hours: My Active Orders 09/03/20 11:13 EKG 12 Lead [EK] Routine 09/03/20 11:15 Sodium Chloride 0.9% [Normal Saline] 1,000 ml IV ASDIRECTED Sodium Chloride 0.9% [Normal Saline] 1,000 ml IV ASDIRECTED Blood Culture x2 Reflex Set [OM.PC] Urgent 09/03/20 11:22 CULTURE BLOOD [BC] Urgent 09/03/20 11:32 CULTURE BLOOD [BC] Urgent
[2020-09-03] MEDS ORDERED: cefTRIAXone 1 GM in Sodium Chloride 0.9% 50 ML IV ONE (11:22)
[2020-09-03] MEDS: Sodium Chloride 0.9% 1,000 ML IV SCH ×2 (11:54→11:55)
[2020-09-03] MEDS ORDERED: Ondansetron 4 MG/2 ML SDV IV PRN (14:42)
[2020-09-03] MEDS ORDERED: Sodium Chloride 0.9% 10 ML Syringe FLUSH PRN (14:42)
--- NOTE | 2020-09-03 14:42 | PCM.HP.2 ---
H&P History of Present Illness - General Date of Service: 09/03/20 Admit Problem/Dx: Complicated urinary tract infection Source of Information: Patient History Limitations: Reports: No Limitations - History of Present Illness Initial Comments - Free Text/Narative: 4-year-old male with a past medical history of prostate cancer as well as reported lymphoma. He has a history of hypertension on Hyzaar, Lopressor, hydralazine, and Lasix. Patient also has a history of diabetes mellitus on Metformin and glyburide. Patient was evaluated in the emergency department earlier this morning with concerns of dysuria, urinary frequency, fever, and malaise. Analysis performed in the clinic concerning for urinary tract infection. The patient also had low potassium level at 2.2. The patient reports his symptoms have been present now for at least 3 to 4 days. He typically ambulates without assistive device but is quired a cane recently. In the ER, the patient received a couple liters of IV fluids and a dose of Rocephin. Blood cultures were drawn. The patient was febrile to 101 F. Admission was requested for further evaluation and treatment of complicated urinary tract infection. Symptom Onset Date: 08/29/20 Duration of Symptoms: Reports: Day(s):, Getting Worse Location: Reports: Back, Generalized Quality: Reports: Ache Severity: Mild Improves with: Reports: Rest Worsens with: Reports: Movement Associated Symptoms: Reports: Headaches Generalized Pain Score (Numeric/FACES): 6 - Related Data Allergies/Adverse Reactions: Allergies Allergy/AdvReac Type Severity Reaction Status Date / Time amlodipine Allergy Swelling Verified 09/03/20 10:56 nifedipine Allergy Rash Verified 09/03/20 10:56 Home Medications: Home Meds Losartan/Hydrochlorothiazide [Hyzaar 100-12.5 Tablet] 2 each PO DAILY 03/30/13 [History] Metoprolol Tartrate [Lopressor] 100 mg PO BID 03/30/13 [History] PARoxetine HCl [Paxil] 40 mg PO DAILY 03/30/13 [History] glyBURIDE [Diabeta] 2.5 mg PO DAILY 03/30/13 [History] hydrALAZINE HCl [Hydralazine HCl] 25 mg PO BID 03/30/13 [History] metFORMIN [Glucophage] 1,000 mg PO BID 03/30/13 [History] Chlorpheniramine Maleate 12 mg PO DAILY 06/12/20 [History] Cholecalciferol (Vitamin D3) [Vitamin D] 1,000 unit PO DAILY 06/12/20 [History] Copper/Ginseng/Saw Palm/Zinc [Prostate Health Formula] 1 each PO DAILY 06/12/20 [History] Cyanocobalamin (Vitamin B-12) [B-12] 2,500 mcg SL DAILY 06/12/20 [History] Folic Acid 0.4 mg PO DAILY 06/12/20 [History] Furosemide [Lasix] 20 mg PO DAILY 06/12/20 [History] Multivitamin [Multi-Vitamin Daily] 1 each PO DAILY 06/12/20 [History] Ondansetron [Ondansetron Odt] 4 mg PO Q8HR PRN 06/12/20 [History] Abiraterone Acetate 1,000 mg PO DAILY 09/03/20 [History] Finasteride 5 mg PO DAILY 09/03/20 [History] Tamsulosin [Tamsulosin 24 Hr] 0.4 mg PO DAILY 09/03/20 [History] Past Medical History HEENT History: Reports: Impaired Vision Cardiovascular History: Reports: High Cholesterol, Hypertension Respiratory History: Reports: None Gastrointestinal History: Reports: None Genitourinary History: Reports: BPH, Prostate Disorder Musculoskeletal History: Reports: Back Pain, Chronic Psychiatric History: Reports: Addiction, Anxiety, Depression Endocrine/Metabolic History: Reports: Diabetes, Type II Oncologic (Cancer) History: Reports: Prostate - Infectious Disease History Infectious Disease History: Reports: Chicken Pox, Novel Coronavirus - Past Surgical History HEENT Surgical History: Reports: Tonsillectomy GI Surgical History: Reports: None Male Surgical History: Reports: Prostate Biopsy Neurological Surgical History: Reports: Other (See Below) Other Neurological Surgeries/Procedures: Back surgery Social & Family History - Tobacco Use Tobacco Use Status *Q: Former Tobacco User Used Tobacco, but Quit: Yes Month/Year Tobacco Last Used: 20 years - Caffeine Use Caffeine Use: Reports: None - Recreational Drug Use Recreational Drug Use: No - Living Situation & Occupation Living situation: Reports: with Spouse Occupation: Retired H&P Review of Systems - Review of Systems: Review Of Systems: See Below General: Reports: Fever, Chills, Malaise, Weakness HEENT: Reports: No Symptoms Pulmonary: Reports: No Symptoms Cardiovascular: Reports: No Symptoms Gastrointestinal: Reports: No Symptoms Genitourinary: Reports: Dysuria, Frequency, Burning Musculoskeletal: Reports: Back Pain, Muscle Stiffness Skin: Reports: No Symptoms Psychiatric: Reports: No Symptoms Neurological: Reports: No Symptoms Hematologic/Lymphatic: Reports: No Symptoms Immunologic: Reports: No Symptoms Exam - Exam Exam: See Below - Vital Signs Vital Signs: Last Vital Signs Temp 98.3 F 09/03/20 10:53 Pulse 81 09/03/20 13:42 Resp 20 09/03/20 13:42 BP 125/70 09/03/20 13:42 Pulse Ox 95 09/03/20 13:42 Weight: 179 lb - Exam General: Alert, Oriented HEENT: Conjunctiva Clear, Hearing Intact Neck: Supple, Trachea Midline Lungs: Clear to Auscultation Cardiovascular: Regular Rate, Regular Rhythm GI/Abdominal Exam: Soft, Non-Tender Back Exam: CVA Tenderness (R), CVA Tenderness (L) Extremities: Normal Inspection Skin: Warm, Dry Neuro Extensive - Mental Status: Alert, Oriented x3 Psychiatric: Normal Affect, Normal Mood - Patient Data Lab Results Last 24 hrs: Laboratory Results - last 24 hr 09/03/20 09/03/20 Range/Units 11:32 11:32 POC Glucose 229 H (74-106) MG/DL Lactic Acid 1.6 (0.4-2.0) mmol/L #1 Interpretation EKG Date: 09/03/20 Time: 15:00 Rhythm: NSR Emerson: LAD-Left Emerson Deviation P-Wave: Present QRS: Normal ST-T: Normal QT: Prolonged Sepsis Event Note - Evaluation Sepsis Screening Result: No Definite Risk - Focused Exam Vital Signs: Vital Signs Temp Pulse Resp BP Pulse Ox 09/03/20 13:42 81 20 125/70 95 09/03/20 12:45 82 14 129/67 92 L 09/03/20 11:45 86 16 132/65 90 L 09/03/20 10:53 98.3 F 88 15 132/70 95 09/03/20 10:50 98.3 F 88 15 132/70 95 Problem List Initiated/Reviewed/Updated: Yes Orders Last 24hrs: Active Orders 24 hr Category Date Time Status CULTURE BLOOD [BC] Urgent Lab 09/03/20 11:22 Received CULTURE BLOOD [BC] Urgent Lab 09/03/20 11:32 Received Sodium Chloride 0.9% [Normal Saline] 1,000 ml Med 09/03/20 11:15 Active IV ASDIRECTED Sodium Chloride 0.9% [Normal Saline] 1,000 ml Med 09/03/20 11:15 Active IV ASDIRECTED Blood Culture x2 Reflex Set [OM.PC] Urgent Oth 09/03/20 11:15 Ordered EKG 12 Lead [EK] Routine Ther 09/03/20 11:13 Ordered Medication Orders Sodium Chloride (Normal Saline) 1,000 mls @ 999 mls/hr IV ASDIRECTED [facility] Last Admin: 09/03/20 11:55 Dose: 999 mls/hr Documented by: Infusion: 09/03/20 11:55 Dose: 999 mls/hr Documented by: Admin: 09/03/20 11:54 Dose: 999 mls/hr Documented by: PREILOR Sodium Chloride (Normal Saline) 1,000 mls @ 999 mls/hr IV ASDIRECTED [facility] [place] Last Admin: 09/03/20 12:00 Dose: 999 mls/hr Documented by: PREILOR Assessment/Plan Comment:: COMPLICATED URINARY TRACT INFECTION 74-year-old male with known prostate cancer now with systemic signs of infection including fever and malaise with urinalysis consistent with UTI. Patient received fluid bolus as well as ceftriaxone in the emergency department. He reports bilateral flank pain. Requested continued daily Rocephin on the hospital touss[facility]. Requested CT with contrast of the abdomen pelvis to rule out focal fluid collection or any urinary obstruction. Follow-up urine culture from clinic and blood cultures from the hospital. Requested continue to maintenance IV fluids with potassium. HYPOKALEMIA Moderate. Patient received 20 mEq IV potassium in the ER. He denies significant nausea. Requested continued IV fluids with potassium added. Reassess potassium this evening and again in the morning. Requested telemetry. DIABETES MELLITUS Hold [employer] Metformin and glyburide for now Requested 4 times daily Accu-Cheks with low-dose sliding scale insulin during patient's hospitalization HYPERTENSION Patient currently normotensive and would like to be cautious with antihypertensive medications in the setting of complicated UTI. Requested a Lopressor at reduced dosing Hold hydralazine for now. Add back if blood pressure allows. Hold Hyzaar for now. Add back as potassium level and blood pressure allows. Hold Lasix for now. PROSTATE CANCER Patient usually on abiraterone. Resume abiraterone following hospitalization and follow-up routine with urology/oncology. DVT PROPHYLAXIS Requested Lovenox DISPOSITION Patient admitted as an inpatient. Projected hospitalization is 2 to 3 days with target disposition home. Consider PT/OT evaluation if patient is noted to have significant problems with mobility in the next 24 to 48 hours.
[2020-09-03] MEDS ORDERED: Prochlorperazine 10 MG in Sodium Chloride 0.9% 50 ML IV PRN (15:22)
[2020-09-03] MEDS ORDERED: Sodium Chloride 0.9% 10 ML SDV FLUSH ONE (15:41)
[2020-09-03] MEDS ORDERED: Iopamidol 612 MG/ML 100 ML Bottle IV PRN (15:41)
[2020-09-03] MEDS ORDERED: Sodium Chloride 0.9% 100 ML IV SCH (15:45)
[2020-09-03] MEDS: NS + KCl 20mEq/L 1,000 ML IV SCH (16:18)
[2020-09-03] MEDS: Enoxaparin 40 MG/0.4 ML Syringe SUBCUT SCH (16:21)
[2020-09-03] MEDS: Potassium Chloride 20 MEQ Tab.ER PO SCH ×2 (16:21→18:24)
[2020-09-03] MEDS: Acetaminophen 325 MG Tab PO PRN (16:22)
--- NOTE | 2020-09-03 16:53 | CRLCT ---
Indication: UTI with flank pain and assess for urinary obstruction or abscess. Technique: Volumetric multidetector CT images of the abdomen and pelvis were obtained before and after the administration of intravenous contrast using a urographic protocol. 100 cc Isovue-300 low osmolar intravenous contrast Comparison: CT chest, abdomen and pelvis June 17, 2020 Findings: There is dependent basilar atelectasis and parenchymal scarring. The liver is normal in attenuation without intrahepatic biliary ductal dilatation. The portal vein is patent. The gallbladder demonstrates mild gallbladder wall thickening. There is no significant common biliary ductal dilatation or abrupt cut off. The spleen is normal in enhancement and size. The stomach is overall contracted and decompressed. Otherwise the stomach and proximal duodenum are grossly unremarkable. The pancreas is normal in enhancement without significant atrophy. The adrenal glands are unremarkable. The kidneys demonstrate mild to moderate perinephric stranding. There is no evidence of radiopaque calculus or definite obstructive uropathy. There is no evidence of filling defect within the collecting systems. There is mild nonspecific bladder wall thickening which can be seen in the setting of inflammatory changes. There is moderate prostatic hypertrophy. There is a [id number] amount of stool seen throughout the colon with minimal distal colonic diverticulosis. There are fluid-filled loops of central small bowel which may represent mild enteritis changes. The appendix is unremarkable. There are pathologically enlarged retroperitoneal lymph nodes seen at the level of the kidneys the largest within the right retroperitoneum measuring up to 2.9 centimeters in greatest dimension seen on series 8, image 68. There are markedly enlarged right greater than left iliac chain, inguinal and pelvic lymph nodes the largest measuring 2.4 centimeters on series 8, image 131. The aorta is non aneurysmal with scattered atherosclerotic calcifications. The solid pelvic viscera are grossly unremarkable. There is no free fluid or free air. The anterior abdominal wall is intact without significant hernias. The lumbar vertebral body heights are grossly maintained with moderate degenerative disc disease. There is flowing anterior osteophytosis. And there is demonstration of punctate sclerotic foci seen throughout the axial and appendicular skeleton most prominently along the inferior L5 and T10 levels. Additional punctate sclerotic foci are seen throughout the bilateral iliac bones and proximal femora. Impression: Demonstration of minimal nonspecific perinephric stranding of the kidneys without evidence of obstructive uropathy or filling defect. No evidence of rim enhancing fluid collection. Mild nonspecific thickening of the bladder which can be associated with infectious or inflammatory changes. Demonstration of markedly pathologic appearing right greater than left iliac and retroperitoneal lymph nodes with additional scattered sclerotic foci seen throughout the partially visualized axial and appendicular skeleton concerning for metastatic changes from unknown malignancy. There is moderate prostatic hypertrophy. Correlate for serum prostate specific antigen level if there is concern for potential prostate malignancy. Otherwise, further evaluation of pathologic right iliac chain lymph nodes with ultrasound or CT-guided biopsy is recommended. No other acute intra-abdominal abnormalities are appreciated. Please note that all CT scans at this facility use dose modulation, iterative reconstruction, and/or weight-based dosing when appropriate to reduce radiation dose to as low as reasonably achievable. Dictated by Anatoliy Carroll MD @ Sep 03 2020 4:31PM Signed by Dr. Anatoliy Carroll @ Sep 03 2020 4:52PM
[2020-09-03] MEDS: ABIRATERONE 250 MG PO SCH (16:58)
[2020-09-03] MEDS ORDERED: PARoxetine 20 MG Tab PO ONE (17:00)
[2020-09-03] MEDS ORDERED: Finasteride 5 MG Tab PO ONE (17:00)
[2020-09-03] MEDS: Insulin Lispro 100 Unit/ML 3 ML KwikPen SUBCUT SCH ×2 (18:22→21:40)
[2020-09-03] MEDS: predniSONE 5 MG Tab PO SCH (18:24)
[2020-09-03] MEDS ORDERED: Magnesium Sulfate/Water 2 GM/50 ML BAG IV ONE (19:44)
[2020-09-03] MEDS ORDERED: Potassium Chloride 100 ML ONE (19:53)
[2020-09-03] MEDS ORDERED: Potassium Chloride 20 MEQ Tab.ER PO SCH (21:00)
[2020-09-03] MEDS: Tamsulosin 0.4 MG Cap.ER PO SCH (21:42)
[2020-09-03] MEDS: Metoprolol Tartrate 50 MG Tab PO SCH (21:42)
[2020-09-04] MEDS: Magnesium Sulfate/Water 2 GM/50 ML BAG IV SCH ×2 (00:54→07:25)
[2020-09-04] MEDS: NS + KCl 20mEq/L 1,000 ML IV SCH (02:17)
[2020-09-04] MEDS: ABIRATERONE 250 MG PO SCH (07:28)
[2020-09-04] MEDS: predniSONE 5 MG Tab PO SCH ×2 (08:18→17:38)
[2020-09-04] MEDS: Insulin Lispro 100 Unit/ML 3 ML KwikPen SUBCUT SCH ×4 (08:18→21:23)
[2020-09-04] MEDS: Potassium Chloride 20 MEQ Tab.ER PO SCH ×3 (08:18→17:38)
[2020-09-04] MEDS: Metoprolol Tartrate 50 MG Tab PO SCH ×2 (08:22→21:21)
[2020-09-04] MEDS: Finasteride 5 MG Tab PO SCH (08:22)
[2020-09-04] MEDS: PARoxetine 20 MG Tab PO SCH (08:22)
--- NOTE | 2020-09-04 10:29 | PCM.PN ---
- General Info Date of Service: 09/04/20 Subjective Update: No acute events overnight. No fever since admission. Patient is feeling better today. Appetite is better. Strength is better and he has been able to walk di und the room. He is passing urine more efficiently today but it is not quite back to normal yet. No nausea or vomiting. Cultures negative so far. Potassium improving but not quite normal yet. Functional Status: Reports: Pain Controlled, Tolerating Diet - Review of Systems General: Denies: Fever Genitourinary: Reports: Flank Pain - Patient Data Vitals - Most Recent: Last Vital Signs Temp 36.1 C 09/04/20 08:00 Pulse 78 09/04/20 08:22 Resp 17 09/04/20 08:00 BP 137/80 09/04/20 08:22 Pulse Ox 98 09/04/20 08:00 Weight - Most Recent: 85.774 kg I&O - Last 24 Hours: Intake & Output 09/03/20 09/04/20 09/04/20 22:59 06:59 14:59 Intake Total 290 Output Total 675 650 250 Balance -675 -650 40 Lab Results Last 24 Hours: Laboratory Results - last 24 hr 09/03/20 09/03/20 09/03/20 Range/Units 11:32 11:32 15:26 WBC (4.5-11.0) K/uL RBC (4.30-5.90) M/uL Hgb (12.0-15.0) g/dL Hct (40.0-54.0) % MCV (80-98) fL MCH (27-31) pg MCHC (32-36) % Plt Count (150-400) K/uL Neut % (Auto) (36-66) % Lymph % (Auto) (24-44) % [place] % (Auto) (2-6) % Eos % (Auto) (2-4) % Baso % (Auto) (0-1) % Sodium (140-148) mmol/L Potassium (3.6-5.2) mmol/L Chloride (100-108) mmol/L Carbon Dioxide (21-32) mmol/L Anion Gap (5.0-14.0) mmol/L BUN (7-18) mg/dL Creatinine (0.8-1.3) mg/dL Est Cr Clr Drug Dosing mL/min Estimated GFR (MDRD) (>60) Glucose (74-106) mg/dL POC Glucose 229 H (74-106) MG/DL Lactic Acid 1.6 (0.4-2.0) mmol/L Calcium (8.5-10.1) mg/dL Magnesium 1.0 L D (1.8-2.4) mg/dL 09/03/20 09/04/20 09/04/20 Range/Units 18:00 05:20 05:20 WBC 3.4 L (4.5-11.0) K/uL RBC 3.31 L (4.30-5.90) M/uL Hgb 11.1 L D (12.0-15.0) g/dL Hct 33.2 L (40.0-54.0) % MCV 100 H (80-98) fL MCH 34 H (27-31) pg MCHC 33 (32-36) % Plt Count 176 (150-400) K/uL Neut % (Auto) 68 H (36-66) % Lymph % (Auto) 15 L (24-44) % [place] % (Auto) 13 H (2-6) % Eos % (Auto) 4 (2-4) % Baso % (Auto) 1 (0-1) % Sodium 142 (140-148) mmol/L Potassium 2.3 L* 3.2 L (3.6-5.2) mmol/L Chloride 104 (100-108) mmol/L Carbon Dioxide 29 (21-32) mmol/L Anion Gap 12.2 (5.0-14.0) mmol/L BUN 8 D (7-18) mg/dL Creatinine 0.8 (0.8-1.3) mg/dL Est Cr Clr Drug Dosing 86.18 mL/min Estimated GFR (MDRD) > 60 (>60) Glucose 232 H (74-106) mg/dL POC Glucose (74-106) MG/DL Lactic Acid (0.4-2.0) mmol/L Calcium 7.4 L D (8.5-10.1) mg/dL Magnesium (1.8-2.4) mg/dL 09/04/20 Range/Units 05:20 WBC (4.5-11.0) K/uL RBC (4.30-5.90) M/uL Hgb (12.0-15.0) g/dL Hct (40.0-54.0) % MCV (80-98) fL MCH (27-31) pg MCHC (32-36) % Plt Count (150-400) K/uL Neut % (Auto) (36-66) % Lymph % (Auto) (24-44) % [place] % (Auto) (2-6) % Eos % (Auto) (2-4) % Baso % (Auto) (0-1) % Sodium (140-148) mmol/L Potassium (3.6-5.2) mmol/L Chloride (100-108) mmol/L Carbon Dioxide (21-32) mmol/L Anion Gap (5.0-14.0) mmol/L BUN (7-18) mg/dL Creatinine (0.8-1.3) mg/dL Est Cr Clr Drug Dosing mL/min Estimated GFR (MDRD) (>60) Glucose (74-106) mg/dL POC Glucose (74-106) MG/DL Lactic Acid (0.4-2.0) mmol/L Calcium (8.5-10.1) mg/dL Magnesium 2.2 (1.8-2.4) mg/dL Med Orders - Current: Current Medications Acetaminophen (Acetaminophen 325 Mg Tab) 650 mg PO Q4H PRN PRN Reason: Pain (Mild 1-3)/fever Last Admin: 09/03/20 16:22 Dose: 650 mg Documented by: Enoxaparin Sodium (Enoxaparin 40 Mg/0.4 Ml Syringe) 40 mg SUBCUT Q24H [facility] Last Admin: 09/03/20 16:21 Dose: 40 mg Documented by: Finasteride (Finasteride 5 Mg Tab) 5 mg PO DAILY [facility] Last Admin: 09/04/20 08:22 Dose: 5 mg Documented by: Ceftriaxone Sodium 1 gm/ (Sodium Chloride) 50 mls @ 100 mls/hr IV Q24H [facility] Prochlorperazine Edisylate 10 (mg/ Sodium Chloride) 52 mls @ 150 mls/hr IV Q6H PRN PRN Reason: Nausea/Vomiting Magnesium Sulfate (Magnesium Sulfate In Water 2 Gm/50 Ml) 2 gm in 50 mls @ 12.5 mls/hr IV Q6H [facility] Last Admin: 09/04/20 07:25 Dose: 12.5 mls/hr Documented by: Insulin Human Lispro (Insulin Lispro 100 Unit/Ml 3 Ml Kwikpen) 0 unit SUBCUT QIDACANDBED [facility]; Protocol Last Admin: 09/04/20 08:18 Dose: 1 units Documented by: Iopamidol (Iopamidol 612 Mg/Ml 100 Ml Bottle) 100 ml IV . DIRECTED PRN PRN Reason: RADIOLOGY EXAM Stop: 09/04/20 15:42 Last Admin: 09/03/20 15:33 Dose: 100 ml Documented by: Metoprolol Tartrate (Metoprolol Tartrate 50 Mg Tab) 50 mg PO Q12H [facility] Last Admin: 09/04/20 08:22 Dose: 50 mg Documented by: Abiraterone 250mg * (Pom*) 4 each PO DAILY@0700 [facility] Last Admin: 09/04/20 07:28 Dose: 4 each Documented by: Paroxetine HCl (Paroxetine 20 Mg Tab) 40 mg PO DAILY [facility] Last Admin: 09/04/20 08:22 Dose: 40 mg Documented by: Potassium Chloride (Potassium Chloride 20 Meq Tab.Er) 20 meq PO TIDMEALS [facility] Last Admin: 09/04/20 08:18 Dose: 20 meq Documented by: Prednisone (Prednisone 5 Mg Tab) 5 mg PO BIDMEALS [facility] Last Admin: 09/04/20 08:18 Dose: 5 mg Documented by: Sodium Chloride (Sodium Chloride 0.9% 10 Ml Syringe) 10 ml FLUSH ASDIRECTED PRN PRN Reason: Keep Vein Open Last Admin: 09/03/20 15:33 Dose: 10 ml Documented by: Tamsulosin HCl (Tamsulosin 0.4 Mg Cap.Er) 0.4 mg PO BEDTIME [facility] Last Admin: 09/03/20 21:42 Dose: 0.4 mg Documented by: Discontinued Medications Finasteride (Finasteride 5 Mg Tab) 5 mg PO ONETIME ONE Stop: 09/03/20 17:01 Last Admin: 09/03/20 17:03 Dose: 5 mg Documented by: Sodium Chloride (Normal Saline) 1,000 mls @ 999 mls/hr IV ASDIRECTED [facility] Last Admin: 09/03/20 11:55 Dose: 999 mls/hr Documented by: Sodium Chloride (Normal Saline) 1,000 mls @ 999 mls/hr IV ASDIRECTED [facility] Last Admin: 09/03/20 12:00 Dose: 999 mls/hr Documented by: Potassium Chloride 20 meq/ (Premix) 100 mls @ 50 mls/hr IV ONETIME ONE Stop: 09/03/20 13:12 Last Admin: 09/03/20 11:56 Dose: 50 mls/hr Documented by: Ceftriaxone Sodium 1 gm/ (Sodium Chloride) 50 mls @ 100 mls/hr IV ONETIME ONE Stop: 09/03/20 11:51 Last Admin: 09/03/20 11:58 Dose: 100 mls/hr Documented by: Potassium Chloride/Sodium Chloride (Normal Saline With 20 Meq Kcl) 1,000 mls [facility] Admin: 09/04/20 02:17 Dose: 100 mls/hr Documented by: Sodium Chloride (Normal Saline) 100 mls @ [facility] Stop: 09/03/20 15:46 Last Admin: 09/03/20 15:34 Dose: 3 mls/sec Documented by: Potassium Chloride 20 meq/ (Premix) 100 mls @ 50 mls/hr IV ONETIME ONE Stop: 09/03/20 21:29 Last Admin: 09/03/20 20:04 Dose: 50 mls/hr Documented by: Potassium Chloride 20 meq/ (Premix) 100 mls @ 50 mls/hr IV ONETIME ONE Stop: 09/03/20 23:29 Last Admin: 09/03/20 22:09 Dose: 50 mls/hr Documented by: Magnesium Sulfate (Magnesium Sulfate In Water 2 Gm/50 Ml) 2 gm in 50 mls @ 12.5 mls/hr IV ONETIME ONE Stop: 09/03/20 23:43 Last Admin: 09/03/20 20:05 Dose: 12.5 mls/hr Documented by: Potassium Chloride (Kcl In Water 20 Meq/100 Ml) Confirm Administered Dose 100 mls @ as directed .ROUTE .STK-MED ONE Stop: 09/03/20 19:54 Last Admin: 09/03/20 20:05 Dose: Not Given Documented by: Lidocaine HCl (Lidocaine 1% 5 Ml Sdv) 2 ml INJECT ONETIME ONE Stop: 09/03/20 19:46 Last Admin: 09/03/20 20:04 Dose: 2 ml Documented by: Ondansetron HCl (Ondansetron 4 Mg/2 Ml Sdv) 4 mg IV Q4H PRN PRN Reason: Nausea/Vomiting Paroxetine HCl (Paroxetine 20 Mg Tab) 40 mg PO ONETIME ONE Stop: 09/03/20 17:01 Last Admin: 09/03/20 17:01 Dose: 40 mg Documented by: Sodium Chloride (Sodium Chloride 0.9% 10 Ml Sdv) 10 ml FLUSH ONETIME ONE Stop: 09/03/20 15:42 Last Admin: 09/03/20 16:22 Dose: 10 ml Documented by: - Exam Quality Assessment: No: Supplemental Oxygen General: Alert, Oriented, Cooperative, No Acute Distress Lungs: Clear to Auscultation, Normal Respiratory Effort Cardiovascular: Regular Rate, Regular Rhythm GI/Abdominal Exam: Soft, No Distention Extremities: No Pedal Edema. No: Increased Warmth Skin: Warm, Dry Psy/Mental Status: Alert, Normal Affect - Patient Data Lab Results Last 24 hrs: Laboratory Results - last 24 hr 09/03/20 09/03/20 09/03/20 Range/Units 11:32 11:32 15:26 WBC (4.5-11.0) K/uL RBC (4.30-5.90) M/uL Hgb (12.0-15.0) g/dL Hct (40.0-54.0) % MCV (80-98) fL MCH (27-31) pg MCHC (32-36) % Plt Count (150-400) K/uL Neut % (Auto) (36-66) % Lymph % (Auto) (24-44) % [place] % (Auto) (2-6) % Eos % (Auto) (2-4) % Baso % (Auto) (0-1) % Sodium (140-148) mmol/L Potassium (3.6-5.2) mmol/L Chloride (100-108) mmol/L Carbon Dioxide (21-32) mmol/L Anion Gap (5.0-14.0) mmol/L BUN (7-18) mg/dL Creatinine (0.8-1.3) mg/dL Est Cr Clr Drug Dosing mL/min Estimated GFR (MDRD) (>60) Glucose (74-106) mg/dL POC Glucose 229 H (74-106) MG/DL Lactic Acid 1.6 (0.4-2.0) mmol/L Calcium (8.5-10.1) mg/dL Magnesium 1.0 L D (1.8-2.4) mg/dL 09/03/20 09/04/20 09/04/20 Range/Units 18:00 05:20 05:20 WBC 3.4 L (4.5-11.0) K/uL RBC 3.31 L (4.30-5.90) M/uL Hgb 11.1 L D (12.0-15.0) g/dL Hct 33.2 L (40.0-54.0) % MCV 100 H (80-98) fL MCH 34 H (27-31) pg MCHC 33 (32-36) % Plt Count 176 (150-400) K/uL Neut % (Auto) 68 H (36-66) % Lymph % (Auto) 15 L (24-44) % [place] % (Auto) 13 H (2-6) % Eos % (Auto) 4 (2-4) % Baso % (Auto) 1 (0-1) % Sodium 142 (140-148) mmol/L Potassium 2.3 L* 3.2 L (3.6-5.2) mmol/L Chloride 104 (100-108) mmol/L Carbon Dioxide 29 (21-32) mmol/L Anion Gap 12.2 (5.0-14.0) mmol/L BUN 8 D (7-18) mg/dL Creatinine 0.8 (0.8-1.3) mg/dL Est Cr Clr Drug Dosing 86.18 mL/min Estimated GFR (MDRD) > 60 (>60) Glucose 232 H (74-106) mg/dL POC Glucose (74-106) MG/DL Lactic Acid (0.4-2.0) mmol/L Calcium 7.4 L D (8.5-10.1) mg/dL Magnesium (1.8-2.4) mg/dL 09/04/20 Range/Units 05:20 WBC (4.5-11.0) K/uL RBC (4.30-5.90) M/uL Hgb (12.0-15.0) g/dL Hct (40.0-54.0) % MCV (80-98) fL MCH (27-31) pg MCHC (32-36) % Plt Count (150-400) K/uL Neut % (Auto) (36-66) % Lymph % (Auto) (24-44) % [place] % (Auto) (2-6) % Eos % (Auto) (2-4) % Baso % (Auto) (0-1) % Sodium (140-148) mmol/L Potassium (3.6-5.2) mmol/L Chloride (100-108) mmol/L Carbon Dioxide (21-32) mmol/L Anion Gap (5.0-14.0) mmol/L BUN (7-18) mg/dL Creatinine (0.8-1.3) mg/dL Est Cr Clr Drug Dosing mL/min Estimated GFR (MDRD) (>60) Glucose (74-106) mg/dL POC Glucose (74-106) MG/DL Lactic Acid (0.4-2.0) mmol/L Calcium (8.5-10.1) mg/dL Magnesium 2.2 (1.8-2.4) mg/dL Result Diagrams: 09/04/20 05:20 09/04/20 05:20 Sepsis Event Note - Evaluation Sepsis Screening Result: No Definite Risk - Focused Exam Vital Signs: Vital Signs Temp Pulse Pulse Resp BP BP Pulse Ox 09/04/20 08:22 78 137/80 09/04/20 08:00 36.1 C 87 17 137/80 98 09/04/20 04:00 70 18 121/74 96 09/04/20 00:00 64 17 123/72 93 L - Problem List Review Problem List Initiated/Reviewed/Updated: Yes - My Orders Last 24 Hours: My Active Orders 09/04/20 10:27 Discontinue Telemetry Monitoring [Cardiac Monitoring Discontinue] [RC] Click to Edit Up ad Veronica [RC] ASDIRECTED 09/04/20 10:30 NS + KCl 20mEq/L [Normal Saline with 20 mEq KCl] 1,000 ml IV ASDIRECTED 09/05/20 05:00 BASIC METABOLIC PANEL,BMP [CHEM] Timed CBC W/O DIFF,HEMOGRAM [HEME] Timed (1) - Plan Plan:: ASSESSMENT AND PLAN - Probable bilateral pyelonephritis-complicated urinary tract infection in the setting of prostate cancer. Cultures negative so far. Clinically improving. CT scan did not show any evidence for abscess but did show some stranding around the kidneys. -Continue ceftriaxone Follow-up urine culture from clinic and blood cultures from the hospital. Gentle IV fluids -Pain control HYPOKALEMIA-improving with supplementation but still low. -Continue gentle fluids with potassium as well as 3 times daily oral supplementation DIABETES MELLITUS-sugars fairly well controlled so far. Hold [employer] Metformin and glyburide today, anticipate restarting tomorrow Requested 4 times daily Accu-Cheks with low-dose sliding scale insulin during patient's hospitalization HYPERTENSION-blood pressure well controlled so far. Hold home meds until blood pressure rises a little further PROSTATE CANCER-Patient usually on abiraterone. Resume abiraterone following hospitalization and follow-up routine with urology/oncology. DVT PROPHYLAXIS Enoxaparin DISPOSITION-anticipate discharge home after the hospital stay, possibly as early as tomorrow if stable overnight Raj Yang MD
[2020-09-04] MEDS ORDERED: NS + KCl 20mEq/L 1,000 ML IV SCH (10:30)
[2020-09-04] MEDS: cefTRIAXone 1 GM in Sodium Chloride 0.9% 50 ML IV SCH (11:25)
[2020-09-04] MEDS: Enoxaparin 40 MG/0.4 ML Syringe SUBCUT SCH (15:09)
[2020-09-04] MEDS: Acetaminophen 325 MG Tab PO PRN (20:16)
[2020-09-04] MEDS: Tamsulosin 0.4 MG Cap.ER PO SCH (21:20)
[2020-09-05] MEDS: ABIRATERONE 250 MG PO SCH (07:24)
[2020-09-05] MEDS: Acetaminophen 325 MG Tab PO PRN (07:24)
[2020-09-05] MEDS: Potassium Chloride 20 MEQ Tab.ER PO SCH ×2 (07:25→11:00)
[2020-09-05] MEDS: Insulin Lispro 100 Unit/ML 3 ML KwikPen SUBCUT SCH ×2 (07:26→11:37)
[2020-09-05] MEDS: predniSONE 5 MG Tab PO SCH (07:27)
[2020-09-05] MEDS ORDERED: metFORMIN 500 MG Tab PO SCH (07:30)
[2020-09-05] MEDS: PARoxetine 20 MG Tab PO SCH (08:34)
[2020-09-05] MEDS: Metoprolol Tartrate 50 MG Tab PO SCH (08:34)
[2020-09-05] MEDS: Finasteride 5 MG Tab PO SCH (08:35)
[2020-09-05] MEDS: cefTRIAXone 1 GM in Sodium Chloride 0.9% 50 ML IV SCH (11:00)
[2020-09-05] MEDS ORDERED: tiZANidine 2 MG Tab PO PRN (11:40)
[2020-09-05 15:13] VITALS: BP 116/69; PULSE 73
--- NOTE | 2020-09-05 15:58 | PCM.DCSUM1 ---
Discharge Summary - Hospital Course Brief History: 74-year-old male with a history of prostate cancer, type 2 diabetes mellitus who presented with fatigue, anorexia and difficulty passing urine. He was admitted for management of a complicated urinary tract infection as well as profound hypokalemia and hypomagnesemia. Diagnosis: Stroke: No - Discharge Data Discharge Date: 09/05/20 Discharge Disposition: Home, Self-Care 01 Condition: Good - Referral to Home Health Primary Care Physician: Cy Barragan MD - Discharge Diagnosis/Problem(s) (1) Complicated urinary tract infection SNOMED Code(s): 48468587 ICD Code: N39.0 - URINARY TRACT INFECTION, SITE NOT SPECIFIED Status: Acute Current Visit: Yes (2) Hypokalemia SNOMED Code(s): 24252258 ICD Code: E87.6 - HYPOKALEMIA Status: Acute Current Visit: Yes (3) CA of prostate SNOMED Code(s): 164372461 ICD Code: C61 - MALIGNANT NEOPLASM OF PROSTATE Status: Chronic Current Visit: Yes (4) Type 2 diabetes mellitus SNOMED Code(s): 20114049 ICD Code: E11.9 - TYPE 2 DIABETES MELLITUS WITHOUT COMPLICATIONS Status: Chronic Current Visit: No Qualifiers: 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 PT Reason for Consult: muscle spasm Right Shoulder This query below is only for informational purposes and is not editable. Admission Diagnosis/Problem: Complicated urinary tract infection Hospital Course: Jorge L presented to the emergency room with weakness, fatigue anorexia and difficulty passing urine. Work-up in the emergency room was suggestive of a complicated urinary tract infection. Also noted was profound hypokalemia and hypomagnesemia. The patient did receive some supplementation in the emergency room as well as IV antibiotics. He was admitted to the hospital for further management. A CT scan of the abdomen and pelvis was obtained shortly after admission to rule out intra-abdominal pathology. This did show some mild stranding around both kidneys but no evidence for abscess and no impressive pyelonephritis though this could represent early pyelonephritis. His bladder wall was also noted to be thickened consistent with a bladder infection. Throughout the first 24 hours his potassium and magnesium were aggressively supplemented with a steady improvement in both levels. With IV fluids and antibiotics his nausea, fatigue and anorexia improved. His strength improved quite rapidly during the course of the hospital stay as well. His magnesium and potassium levels have normalized with supplementation. He was febrile at the time of presentation but has been afebrile since that time. His urine culture and his blood cultures have not grown out any specific bacteria. He has been improving with the ceftriaxone so the plan is to transition him to cefdinir at the time of discharge home. He is stable and safe for discharge. During the hospital stay he did report some neck and shoulder pain. This was felt to be a muscle spasm with no preceding injury. It has responded well to muscle relaxers and massage. He will be getting a prescription for a short course of muscle relaxers. He has early follow-up scheduled. - Patient Instructions Diet: Diabetic Diet Activity: As Tolerated Driving: Do Not Drive (if you are taking the muscle relaxers) Showering/Bathing: May Shower Notify Provider of: Fever, Increased Pain Other/Special Instructions: 1. You were in the in the hospital for management of a complicated urinary tract infection and possibly pyelonephritis (kidney infection). Your condition has been improving with IV fluids as well as antibiotic therapy. We did not determine a causative bacteria from either the urine culture or the blood cultures. Your condition has been improving with the empiric antibiotic therapy so we will transition to an oral form of this medication. I recommend that you take cefdinir (Omnicef) 300 mg twice daily for 9 more doses. Your first dose outside of the hospital will be due tonight. You should take this medication with food to avoid stomach upset. 2. Regarding your neck pain, I suspect that you have muscle spasm or muscle strain involving the right shoulder and neck area. You may use ibuprofen or acetaminophen to help with pain. I would recommend that you alternate ice and heat every 2 hours. You can apply either the ice or the heat for about 15 to 20 minutes at a time. I did provide a small prescription for tizanidine. This is a muscle relaxer that can also help to reduce the muscle spasm. This medication can make you sleepy so you should not drive or plan to be active after you have taken the medication. 3. Continue your other home medications as previously prescribed. 4. Follow up with your primary care as scheduled or sooner if your condition does not continue to improve or worsens - Discharge Plan *PRESCRIPTION DRUG MONITORING PROGRAM REVIEWED*: Not Applicable *COPY OF PRESCRIPTION DRUG MONITORING REPORT IN PATIENT ROSARIO: Not Applicable Prescriptions/Med Rec: Cefdinir 300 mg PO BID #9 capsule tiZANidine HCl [Zanaflex] 2 mg PO Q8H PRN #10 capsule PRN Reason: Muscle Spasm Home Medications: Home Meds Losartan/Hydrochlorothiazide [Hyzaar 100-12.5 Tablet] 2 each PO DAILY 03/30/13 [History] Metoprolol Tartrate [Lopressor] 100 mg PO BID 03/30/13 [History] PARoxetine HCl [Paxil] 40 mg PO DAILY 03/30/13 [History] hydrALAZINE HCl [Hydralazine HCl] 25 mg PO BID 03/30/13 [History] metFORMIN [Glucophage] 1,000 mg PO BID 03/30/13 [History] Chlorpheniramine Maleate 12 mg PO DAILY 06/12/20 [History] Cholecalciferol (Vitamin D3) [Vitamin D3] 1,000 unit PO DAILY 06/12/20 [History] Copper/Ginseng/Saw Palm/Zinc [Prostate Health Formula] 1 each PO DAILY 06/12/20 [History] Cyanocobalamin (Vitamin B-12) [B-12] 2,500 mcg SL DAILY 06/12/20 [History] Folic Acid 0.4 mg PO DAILY 06/12/20 [History] Furosemide [Lasix] 20 mg PO DAILY 06/12/20 [History] Multivitamin [Multi-Vitamin Daily] 1 each PO DAILY 06/12/20 [History] Ondansetron [Ondansetron ODT] 4 mg PO Q8HR PRN 06/12/20 [History] Abiraterone Acetate 1,000 mg PO DAILY 09/03/20 [History] Finasteride 5 mg PO DAILY 09/03/20 [History] Tamsulosin [Flomax] 0.4 mg PO DAILY 09/03/20 [History] predniSONE 5 mg PO BID 09/03/20 [History] Cefdinir 300 mg PO BID #9 capsule 09/05/20 [Rx] glipiZIDE [Glucotrol] 5 mg PO DAILY 09/05/20 [History] tiZANidine HCl [Zanaflex] 2 mg PO Q8H PRN #10 capsule 09/05/20 [Rx] Patient Handouts: Urinary Tract Infection, Adult, Tizanidine tablets or capsules Referrals: Cy Barragan MD [Primary Care Provider] - 09/12/20 1:40 pm (Please arrive 5 minutes early to register for your appointment.) - Discharge Summary/Plan Comment DC Time >30 min.: No - Patient Data Vitals - Most Recent: Last Vital Signs Temp 36.2 C 09/05/20 15:00 Pulse 73 09/05/20 15:00 Resp 18 09/05/20 15:00 BP 116/69 09/05/20 15:00 Pulse Ox 95 09/05/20 15:00 Weight - Most Recent: 85.774 kg I&O - Last 24 hours: Intake & Output 09/05/20 09/05/20 09/05/20 06:59 14:59 22:59 Intake Total 1283 Output Total 1000 Balance 283 Lab Results - Last 24 hrs: Laboratory Results - last 24 hr 09/05/20 09/05/20 09/05/20 Range/Units 05:20 05:20 07:30 WBC 5.5 (4.5-11.0) K/uL RBC 3.26 L (4.30-5.90) M/uL Hgb 10.7 L (12.0-15.0) g/dL Hct 33.1 L (40.0-54.0) % MCV 102 H (80-98) fL MCH 33 H (27-31) pg MCHC 32 (32-36) % Plt Count 191 (150-400) K/uL Sodium 138 L (140-148) mmol/L Potassium 3.6 (3.6-5.2) mmol/L Chloride 102 (100-108) mmol/L Carbon Dioxide 27 (21-32) mmol/L Anion Gap 12.6 (5.0-14.0) mmol/L BUN 6 L (7-18) mg/dL Creatinine 0.8 (0.8-1.3) mg/dL Est Cr Clr Drug Dosing 86.39 mL/min Estimated GFR (MDRD) > 60 (>60) Glucose 203 H (74-106) mg/dL POC Glucose 198 H (74-106) MG/DL Calcium 7.3 L (8.5-10.1) mg/dL 09/05/20 Range/Units 11:25 WBC (4.5-11.0) K/uL RBC (4.30-5.90) M/uL Hgb (12.0-15.0) g/dL Hct (40.0-54.0) % MCV (80-98) fL MCH (27-31) pg MCHC (32-36) % Plt Count (150-400) K/uL Sodium (140-148) mmol/L Potassium (3.6-5.2) mmol/L Chloride (100-108) mmol/L Carbon Dioxide (21-32) mmol/L Anion Gap (5.0-14.0) mmol/L BUN (7-18) mg/dL Creatinine (0.8-1.3) mg/dL Est Cr Clr Drug Dosing mL/min Estimated GFR (MDRD) (>60) Glucose (74-106) mg/dL POC Glucose 216 H (74-106) MG/DL Calcium (8.5-10.1) mg/dL WINIFRED Results - Last 24 hrs: Microbiology 09/03/20 11:22 Aerobic Blood Culture - Preliminary Blood - Venous NO GROWTH AFTER 2 DAYS Anaerobic Blood Culture - Preliminary NO GROWTH AFTER 2 DAYS 09/03/20 11:32 Aerobic Blood Culture - Preliminary Blood - Venous - Lab Draw NO GROWTH AFTER 2 DAYS Anaerobic Blood Culture - Preliminary NO GROWTH AFTER 2 DAYS Med Orders - Current: Current Medications Acetaminophen (Acetaminophen 325 Mg Tab) 650 mg PO Q4H PRN PRN Reason: Pain (Mild 1-3)/fever Last Admin: 09/05/20 07:24 Dose: 650 mg Documented by: Enoxaparin Sodium (Enoxaparin 40 Mg/0.4 Ml Syringe) 40 mg SUBCUT Q24H [facility] Last Admin: 09/04/20 15:09 Dose: 40 mg Documented by: Finasteride (Finasteride 5 Mg Tab) 5 mg PO DAILY [facility] Last Admin: 09/05/20 08:35 Dose: 5 mg Documented by: Glyburide (Glyburide 2.5 Mg Tab) 2.5 mg PO DAILY [facility] Last Admin: 09/05/20 08:34 Dose: 2.5 mg Documented by: Ceftriaxone Sodium 1 gm/ (Sodium Chloride) 50 mls @ 100 mls/hr IV Q24H [facility] Last Admin: 09/05/20 11:00 Dose: 100 mls/hr Documented by: Prochlorperazine Edisylate 10 (mg/ Sodium Chloride) 52 mls @ 150 mls/hr IV Q6H PRN PRN Reason: Nausea/Vomiting Insulin Human Lispro (Insulin Lispro 100 Unit/Ml 3 Ml Kwikpen) 0 unit SUBCUT QIDACANDBED [facility]; Protocol Last Admin: 09/05/20 11:37 Dose: 2 units Documented by: Metformin HCl (Metformin 500 Mg Tab) 1,000 mg PO BIDAC [facility] Last Admin: 09/05/20 08:34 Dose: 1,000 mg Documented by: Metoprolol Tartrate (Metoprolol Tartrate 50 Mg Tab) 50 mg PO Q12H [facility] Last Admin: 09/05/20 08:34 Dose: 50 mg Documented by: Abiraterone 250mg * (Pom*) 4 each PO DAILY@0700 [facility] Last Admin: 09/05/20 07:24 Dose: 4 each Documented by: Paroxetine HCl (Paroxetine 20 Mg Tab) 40 mg PO DAILY [facility] Last Admin: 09/05/20 08:34 Dose: 40 mg Documented by: Potassium Chloride (Potassium Chloride 20 Meq Tab.Er) 20 meq PO TIDMEALS [facility] Last Admin: 09/05/20 11:00 Dose: 20 meq Documented by: Prednisone (Prednisone 5 Mg Tab) 5 mg PO BIDMEALS [facility] Last Admin: 09/05/20 07:27 Dose: 5 mg Documented by: Sodium Chloride (Sodium Chloride 0.9% 10 Ml Syringe) 10 ml FLUSH ASDIRECTED PRN PRN Reason: Keep Vein Open Last Admin: 09/03/20 15:33 Dose: 10 ml Documented by: Tamsulosin HCl (Tamsulosin 0.4 Mg Cap.Er) 0.4 mg PO BEDTIME [facility] Last Admin: 09/04/20 21:20 Dose: 0.4 mg Documented by: Tizanidine HCl (Tizanidine 2 Mg Tab) 2 mg PO Q6H PRN PRN Reason: Muscle Spasm Last Admin: 09/05/20 11:46 Dose: 2 mg Documented by: Discontinued Medications Finasteride (Finasteride 5 Mg Tab) 5 mg PO ONETIME ONE Stop: 09/03/20 17:01 Last Admin: 09/03/20 17:03 Dose: 5 mg Documented by: Sodium Chloride (Normal Saline) 1,000 mls @ 999 mls/hr IV ASDIRECTED [facility] Last Admin: 09/03/20 11:55 Dose: 999 mls/hr Documented by: Sodium Chloride (Normal Saline) 1,000 mls @ 999 mls/hr IV ASDIRECTED [facility] Last Admin: 09/03/20 12:00 Dose: 999 mls/hr Documented by: Potassium Chloride 20 meq/ (Premix) 100 mls @ 50 mls/hr IV ONETIME ONE Stop: 09/03/20 13:12 Last Admin: 09/03/20 11:56 Dose: 50 mls/hr Documented by: Ceftriaxone Sodium 1 gm/ (Sodium Chloride) 50 mls @ 100 mls/hr IV ONETIME ONE Stop: 09/03/20 11:51 Last Admin: 09/03/20 11:58 Dose: 100 mls/hr Documented by: Potassium Chloride/Sodium Chloride (Normal Saline With 20 Meq Kcl) 1,000 mls @ 100 mls/hr IV ASDIRECTED [facility] Last Admin: 09/04/20 02:17 Dose: 100 mls/hr Documented by: Sodium Chloride (Normal Saline) 100 mls @ 3 mls/sec IV ASDIRECTED [facility] Stop: 09/03/20 15:46 Last Admin: 09/03/20 15:34 Dose: 3 mls/sec Documented by: Potassium Chloride 20 meq/ (Premix) 100 mls @ 50 mls/hr IV ONETIME ONE Stop: 09/03/20 21:29 Last Admin: 09/03/20 20:04 Dose: 50 mls/hr Documented by: Potassium Chloride 20 meq/ (Premix) 100 mls @ 50 mls/hr IV ONETIME ONE Stop: 09/03/20 23:29 Last Admin: 09/03/20 22:09 Dose: 50 mls/hr Documented by: Magnesium Sulfate (Magnesium Sulfate In Water 2 Gm/50 Ml) 2 gm in 50 mls @ 12.5 mls/hr IV ONETIME ONE Stop: 09/03/20 23:43 Last Admin: 09/03/20 20:05 Dose: 12.5 mls/hr Documented by: Magnesium Sulfate (Magnesium Sulfate In Water 2 Gm/50 Ml) 2 gm in 50 mls @ 12.5 mls/hr IV Q6H [facility] Last Admin: 09/04/20 07:25 Dose: 12.5 mls/hr Documented by: Potassium Chloride (Kcl In Water 20 Meq/100 Ml) Confirm Administered Dose 100 mls @ as directed .ROUTE .STK-MED ONE Stop: 09/03/20 19:54 Last Admin: 09/03/20 20:05 Dose: Not Given Documented by: Potassium Chloride/Sodium Chloride (Normal Saline With 20 Meq Kcl) 1,000 mls @ 50 mls/hr IV ASDIRECTED [facility] Last Admin: 09/04/20 12:34 Dose: 50 mls/hr Documented by: Iopamidol (Iopamidol 612 Mg/Ml 100 Ml Bottle) 100 ml IV . DIRECTED PRN PRN Reason: RADIOLOGY EXAM Stop: 09/04/20 15:42 Last Admin: 09/03/20 15:33 Dose: 100 ml Documented by: Lidocaine HCl (Lidocaine 1% 5 Ml Sdv) 2 ml INJECT ONETIME ONE Stop: 09/03/20 19:46 Last Admin: 09/03/20 20:04 Dose: 2 ml Documented by: Ondansetron HCl (Ondansetron 4 Mg/2 Ml Sdv) 4 mg IV Q4H PRN PRN Reason: Nausea/Vomiting Paroxetine HCl (Paroxetine 20 Mg Tab) 40 mg PO ONETIME ONE Stop: 09/03/20 17:01 Last Admin: 09/03/20 17:01 Dose: 40 mg Documented by: Sodium Chloride (Sodium Chloride 0.9% 10 Ml Sdv) 10 ml FLUSH ONETIME ONE Stop: 09/03/20 15:42 Last Admin: 09/03/20 16:22 Dose: 10 ml Documented by:
== END 2020-09-05 16:30 | disposition home or self-care (01) | DRG 690 ==
LOC: JP.ED 10:34 → JP.ICU 15:10 → JP.MS 09-05 06:30
PROVIDERS: ADMIT Hospitalist; ATTEND Internal Medicine
DX: N12 Tubulo-interstitial nephritis, not specified as acute or chronic (principal); E87.6 Hypokalemia; N39.0 Urinary tract infection, site not specified; E83.42 Hypomagnesemia; N30.90 Cystitis, unspecified without hematuria; M62.838 Other muscle spasm; E78.00 Pure hypercholesterolemia, unspecified; N40.0 Benign prostatic hyperplasia without lower urinary tract symptoms; F41.9 Anxiety disorder, unspecified; F32.9 Major depressive disorder, single episode, unspecified; E11.9 Type 2 diabetes mellitus without complications; I10 Essential (primary) hypertension; E11.65 Type 2 diabetes mellitus with hyperglycemia; H54.7 Unspecified visual loss; C61 Malignant neoplasm of prostate; M54.9 Dorsalgia, unspecified; G89.29 Other chronic pain; E86.0 Dehydration; Z88.8 Allergy status to other drugs, medicaments and biological substances; Z79.84 Long term (current) use of oral hypoglycemic drugs; Z79.899 Other long term (current) drug therapy; Z87.891 Personal history of nicotine dependence
CPT/HCPCS: 36415; 82962; 83605; 87040 ×2; J0696; J3480; J7030 ×3; 74178; 80048; 83735; 84132; 85025; 85027; 97035-GP; 97140-GP; 97161-GP; A9270-GY; J1650; J1815; J3475; J7512; Q9967

== ENCOUNTER 2021-09-24 09:32 | Day surgery (SDC) | payer MEDICARE, BC ==
[2021-09-24] MEDS ORDERED: fentaNYL 100 MCG/2 ML SDV ONE (10:28)
[2021-09-24] MEDS ORDERED: Propofol 200 MG/20 ML SDV ONE (10:28)
[2021-09-24] MEDS ORDERED: Sodium Chloride 0.9% 1,000 ML IV SCH (10:30)
[2021-09-24] MEDS ORDERED: Metoprolol Tartrate 50 MG Tab PO ONE (12:15)
[2021-09-24] MEDS ORDERED: Losartan 50 MG Tab PO ONE (12:15)
[2021-09-24 13:02] VITALS: BP 171/88; PULSE 75
== END 2021-09-24 13:15 | disposition home or self-care (01) ==
LOC: JP.SDS 09:32
PROVIDERS: ATTEND Surgery
DX: K20.90 Esophagitis, unspecified without bleeding (principal); R13.10 Dysphagia, unspecified; I10 Essential (primary) hypertension; E11.9 Type 2 diabetes mellitus without complications; E78.5 Hyperlipidemia, unspecified; C61 Malignant neoplasm of prostate; C79.51 Secondary malignant neoplasm of bone; F32.A Depression, unspecified; Z88.8 Allergy status to other drugs, medicaments and biological substances; Z79.899 Other long term (current) drug therapy; Z79.84 Long term (current) use of oral hypoglycemic drugs
CPT/HCPCS: A9270-GY; J2704; J3010; J7030

== ENCOUNTER 2022-11-23 15:10 | Emergency (ER) | payer MEDICARE, BC ==
[2022-11-23 16:00] LABS: BASOPHILS ABSOLUTE AUTO 0.05 K/uL (0.00-0.10); BASOPHILS PERCENT AUTO 0.7 % (0.1-1.3); EOSINOPHILS PERCENT AUTO 0.3 % (0.0-5.4); HEMATOCRIT 35.7 % (38.4-49.7); HEMOGLOBIN 12.2 g/dL (12.9-16.9); IMMATURE GRAN ABSOLUTE AUTO 0.05 K/uL (0.00-0.23); IMMATURE GRAN PERCENT AUTO 0.7 % (0.0-0.7); LYMPHOCYTES ABSOLUTE AUTO 0.45 K/uL (0.8-3.3); LYMPHOCYTES PERCENT AUTO 5.9 % (11.4-47.7); MEAN CORPUSCULAR HEMOGLOBIN 35.1 pg (31.6-35.5); MEAN CORPUSCULAR HGB CONC 34.2 g/dL (31.6-35.5); MEAN CORPUSCULAR VOLUME 102.6 fL (81.4-99.0); MONOCYTES ABSOLUTE AUTO 0.63 K/uL (0.20-0.90); MONOCYTES PERCENT AUTO 8.2 % (3.3-12.6); NEUTROPHILS ABSOLUTE AUTO 6.49 K/uL (1.0-7.6); NEUTROPHILS PERCENT AUTO 84.2 % (40.0-78.1); PLATELET COUNT,PLT 191 K/uL (130-375); RED BLOOD CELL COUNT 3.48 M/uL (4.14-5.76); WHITE BLOOD CELL COUNT,WBC 7.7 K/uL (3.2-11.0)
[2022-11-23 16:07] LABS: EOSINOPHILS ABSOLUTE AUTO 0.02 K/uL (0.00-0.40)
[2022-11-23 16:37] LABS: A/G RATIO 0.9 (1.2-2.2); ALANINE AMINOTRANSFERASE,ALT 26 U/L (12-78); ALBUMIN 2.9 g/dL (3.4-5.0); ALKALINE PHOSPHATASE 144 U/L (46-116); ANION GAP 10.7 mmol/L (5.0-14.0); ASPARTATE AMNIOTRANSFERASE,AST 49 U/L (15-37); BLOOD UREA NITROGEN,BUN 5 mg/dL (7-18); CALCIUM 7.7 mg/dL (8.5-10.1); CARBON DIOXIDE,CO2 29 mmol/L (21-32); CHLORIDE,CL 98 mmol/L (100-108); CREATININE 0.9 mg/dL (0.8-1.3); EST CRCL DRUG DOSING (CG) 73.92 mL/min; ESTIMATED GFR 90 mL/min (>60); GLUCOSE RANDOM 205 mg/dL (74-106); POTASSIUM,K 3.7 mmol/L (3.6-5.2); PROTEIN TOTAL,TP 6.1 g/dL (6.4-8.2); SODIUM,NA 134 mmol/L (140-148); TROPONIN I HIGH SENSITIVITY 16.3 pg/mL (<=60.3)
[2022-11-23 17:43] VITALS: BP 164/101; PULSE 88
== END 2022-11-23 17:50 | disposition home or self-care (01) ==
LOC: JP.ED 15:10
DX: R56.9 Unspecified convulsions (principal); I10 Essential (primary) hypertension; E11.9 Type 2 diabetes mellitus without complications; Z87.891 Personal history of nicotine dependence; Z86.16 Personal history of COVID-19; Z79.899 Other long term (current) drug therapy; Z79.84 Long term (current) use of oral hypoglycemic drugs; Z88.8 Allergy status to other drugs, medicaments and biological substances
CPT/HCPCS: 36415; 80053; 83605; 84484; 85025; 99285